=== PATIENT | female | born 1970 | race Caucasian/White ===

== ENCOUNTER 2017-10-04 08:55 | Emergency (ER) | payer BC ==
[2017-10-04 09:11] VITALS: RESP 18; TEMP 98
[2017-10-04] MEDS ORDERED: SODIUM CHLORIDE 0.9% 1,000 ML IV STA (09:28)
--- NOTE | 2017-10-04 09:46 | ED ---
General Adult HPI - General Chief complaint: Vaginal Bleeding Stated complaint: Bleeding 16 days Time Seen by Provider: 10/04/17 09:18 Source: patient, RN notes reviewed Mode of arrival: ambulatory Limitations: no limitations - History of Present Illness Initial comments: Patient 47-year-old female presenting to the emergency room today with a chief complaint of vaginal bleeding. Patient does admit that she checked her menstrual cycle 2 weeks ago and has continued to bleed. Patient denies any pain. She states last today she's noticed some large clots at times. Patient does admit that she's felt tired. She denies any other complaints. She states she has tried to get into her OB but has been unable to make an appointment. Patient denies any recent fever, chills, shortness of breath, chest pain, back pain, abdominal pain, nausea or vomiting, numbness or tingling, dysuria, constipation or diarrhea, headaches or visual changes, or any other complaints. - Related Data Allergies Allergy/AdvReac Type Severity Reaction Status Date / Time cephalexin [From Keflex] Allergy Unknown Verified 10/04/17 09:11 Review of Systems ROS Statement: Those systems with pertinent positive or pertinent negative responses have been documented in the HPI. ROS Other: All systems not noted in ROS Statement are negative. Past Medical History Past Medical History: No Reported History History of Any Multi-Drug Resistant Organisms: None Reported Past Surgical History: Joint Replacement, Orthopedic Surgery Additional Past Surgical History / Comment(s): right ankle surgery, plates and screws in left leg Past Psychological History: No Psychological Hx Reported Smoking Status: Never smoker Past Alcohol Use History: Occasional Past Drug Use History: None Reported General Exam - General Exam Comments Initial Comments: General: The patient is awake and alert, in no distress, and does not appear acutely ill. Eye: Pupils are equal, round and reactive to light, extra-ocular movements are intact. No nystagmus. There is normal conjunctiva bilaterally. No signs of icterus. Ears, nose, mouth and throat: There are moist mucous membranes and no oral lesions. Neck: The neck is supple, there is no tenderness or JVD. Cardiovascular: There is a regular rate and rhythm. No murmur, rub or gallop is appreciated. Respiratory: Lungs are clear to auscultation, respirations are non-labored, breath sounds are equal. No wheezes, stridor, rales, or rhonchi. Gastrointestinal: Soft, non-distended, non-tender abdomen without masses or organomegaly noted. There is no rebound or guarding present. No CVA tenderness. Musculoskeletal: Normal ROM, no tenderness. Strength 5/5. Sensation intact. Pulses equal bilaterally 2+. Neurological: A&O x 3. CN II-XII intact, There are no obvious motor or sensory deficits. Coordination appears grossly intact. Speech is normal. Skin: Skin is warm and dry and no rashes or lesions are noted. Psychiatric: Cooperative, appropriate mood & affect, normal judgment. Limitations: no limitations Course Vital Signs 10/04/17 09:06 Temperature 98 F Pulse Rate 62 Respiratory 18 Rate Blood Pressure 136/76 O2 Sat by Pulse 99 Oximetry Medical Decision Making - Medical Decision Making Patient's labs been reviewed does show stable hemoglobin. Patient's vital stable. Patient's resting comfortably. No abdominal pain or discomfort. Patient has had vaginal bleeding for the past 2 weeks. Ultrasound reviewed and does show a thickened heterogeneous endometrium. Results were discussed with the patient. Advised close follow-up with [facility] over the next 2 days. She states she's been trying to follow her as having a difficult time making appointment. Will also be given on-call OB. Concerns of possible cancer were discussed with the patient. Advised to return if any symptoms increase worsen. - Lab Data Result diagrams: 10/04/17 09:46 10/04/17 09:46 Lab Results 10/04/17 10/04/17 10/04/17 Range/Units 09:46 09:46 09:46 WBC 7.3 (3.8-10.6) k/uL RBC 3.96 (3.80-5.40) m/uL Hgb 10.9 L (11.4-16.0) gm/dL Hct 34.4 (34.0-46.0) % MCV 86.9 (80.0-100.0) fL MCH 27.5 (25.0-35.0) pg MCHC 31.6 (31.0-37.0) g/dL RDW 14.9 (11.5-15.5) % Plt Count 328 (150-450) k/uL Neutrophils % 58 % Lymphocytes % 26 % Monocytes % 7 % Eosinophils % 7 % Basophils % 1 % Neutrophils # 4.2 (1.3-7.7) k/uL Lymphocytes # 1.9 (1.0-4.8) k/uL Monocytes # 0.5 (0-1.0) k/uL Eosinophils # 0.5 (0-0.7) k/uL Basophils # 0.1 (0-0.2) k/uL PT (9.0-12.0) sec INR (<1.2) APTT (22.0-30.0) sec Sodium 138 (137-145) mmol/L Potassium 4.3 (3.5-5.1) mmol/L Chloride 109 H (98-107) mmol/L Carbon Dioxide 24 (22-30) mmol/L Anion Gap 5 mmol/L BUN 13 (7-17) mg/dL Creatinine 0.69 (0.52-1.04) mg/dL Est GFR (CKD-EPI)AfAm >90 (>60 ml/min/1.73 sqM) Est GFR (CKD-EPI)NonAf >90 (>60 ml/min/1.73 sqM) Glucose 82 (74-99) mg/dL Calcium 8.5 (8.4-10.2) mg/dL Total Bilirubin 0.3 (0.2-1.3) mg/dL AST 24 (14-36) U/L ALT 27 (9-52) U/L Alkaline Phosphatase 58 (38-126) U/L Total Protein 6.6 (6.3-8.2) g/dL Albumin 3.6 (3.5-5.0) g/dL Urine Color Urine Appearance (Clear) Urine pH (5.0-8.0) Ur Specific [place] (1.001-1.035) Urine Protein (Negative) Urine Glucose (UA) (Negative) Urine Ketones (Negative) Urine Blood (Negative) Urine Nitrite (Negative) Urine Bilirubin (Negative) Urine Urobilinogen (<2.0) mg/dL Ur Leukocyte Esterase (Negative) Urine RBC (0-5) /hpf Urine WBC (0-5) /hpf Urine Mucus (None) /hpf Urine HCG, Qual Not Detected (Not Detectd) 10/04/17 10/04/17 Range/Units 09:46 09:46 WBC (3.8-10.6) k/uL RBC (3.80-5.40) m/uL Hgb (11.4-16.0) gm/dL Hct (34.0-46.0) % MCV (80.0-100.0) fL MCH (25.0-35.0) pg MCHC (31.0-37.0) g/dL RDW (11.5-15.5) % Plt Count (150-450) k/uL Neutrophils % % Lymphocytes % % Monocytes % % Eosinophils % % Basophils % % Neutrophils # (1.3-7.7) k/uL Lymphocytes # (1.0-4.8) k/uL Monocytes # (0-1.0) k/uL Eosinophils # (0-0.7) k/uL Basophils # (0-0.2) k/uL PT 10.6 (9.0-12.0) sec INR 1.1 (<1.2) APTT 22.9 (22.0-30.0) sec Sodium (137-145) mmol/L Potassium (3.5-5.1) mmol/L Chloride (98-107) mmol/L Carbon Dioxide (22-30) mmol/L Anion Gap mmol/L BUN (7-17) mg/dL Creatinine (0.52-1.04) mg/dL Est GFR (CKD-EPI)AfAm (>60 ml/min/1.73 sqM) Est GFR (CKD-EPI)NonAf (>60 ml/min/1.73 sqM) Glucose (74-99) mg/dL Calcium (8.4-10.2) mg/dL Total Bilirubin (0.2-1.3) mg/dL AST (14-36) U/L ALT (9-52) U/L Alkaline Phosphatase (38-126) U/L Total Protein (6.3-8.2) g/dL Albumin (3.5-5.0) g/dL Urine Color Yellow Urine Appearance Clear (Clear) Urine pH 5.0 (5.0-8.0) Ur Specific [place] 1.016 (1.001-1.035) Urine Protein Negative (Negative) Urine Glucose (UA) Negative (Negative) Urine Ketones Negative (Negative) Urine Blood Large H (Negative) Urine Nitrite Negative (Negative) Urine Bilirubin Negative (Negative) Urine Urobilinogen <2.0 (<2.0) mg/dL Ur Leukocyte Esterase Negative (Negative) Urine RBC >182 H (0-5) /hpf Urine WBC 7 H (0-5) /hpf Urine Mucus Rare H (None) /hpf Urine HCG, Qual (Not Detectd) Disposition Clinical Impression: Dysfunctional uterine bleeding Disposition: HOME SELF-CARE Condition: Good Instructions: Dysfunctional Uterine Bleeding (ED) Additional Instructions: Please follow-up [facility] over the next 2 days. Please return to the emergency room symptoms increase or worsen or for any other concerns. Is patient prescribed a controlled substance at d/c from ED?: No Referrals: Yulia Roberto MD [Primary Care Provider] - 1-2 days Rosie Zuniga MD [STAFF PHYSICIAN] - 1-2 days Time of Disposition: 10:58
[2017-10-04 09:59] LABS: Basophils # (A) 0.1 k/uL (0-0.2); Basophils % (A) 1 %; Eosinophils # (A) 0.5 k/uL (0-0.7); Eosinophils % (A) 7 %; HCT 34.4 % (34.0-46.0); HGB 10.9 gm/dL (11.4-16.0); Lymphocytes # (A) 1.9 k/uL (1.0-4.8); Lymphocytes % (A) 26 %; MCH 27.5 pg (25.0-35.0); MCHC 31.6 g/dL (31.0-37.0); MCV 86.9 fL (80.0-100.0); Monocytes # (A) 0.5 k/uL (0-1.0); Monocytes % (A) 7 %; Neutrophils # (A) 4.2 k/uL (1.3-7.7); Neutrophils % (A) 58 %; Platelet Count 328 k/uL (150-450); RBC 3.96 m/uL (3.80-5.40); RDW 14.9 % (11.5-15.5); WBC 7.3 k/uL (3.8-10.6)
[2017-10-04 10:08] LABS: INR 1.1 (<1.2); Partial Thromboplastin Time 22.9 sec (22.0-30.0); Prothrombin Time 10.6 sec (9.0-12.0)
[2017-10-04 10:12] LABS: Appearance,Urine Clear (Clear); Bilirubin,Urine Negative (Negative); Blood,Urine Large (Negative); Color,Urine Yellow; Glucose,Urine (UA) Negative (Negative); Ketones,Urine Negative (Negative); Leukocyte Esterase,Urine Negative (Negative); Mucus,Urine Rare /hpf; Nitrite,Urine Negative (Negative); Protein,Urine Negative (Negative); RBC,Urine >182 /hpf (0-5); Specific Gravity,Urine 1.016 (1.001-1.035); Urobilinogen,Urine <2.0 mg/dL (<2.0); WBC,Urine 7 /hpf (0-5)
[2017-10-04 10:23] LABS: ALT 27 U/L (9-52); AST 24 U/L (14-36); Albumin 3.6 g/dL (3.5-5.0); Alkaline Phosphatase 58 U/L (38-126); Anion Gap 5 mmol/L; Blood Urea Nitrogen 13 mg/dL (7-17); Calcium 8.5 mg/dL (8.4-10.2); Carbon Dioxide 24 mmol/L (22-30); Chloride 109 mmol/L (98-107); Glucose 82 mg/dL (74-99); Potassium 4.3 mmol/L (3.5-5.1); Sodium 138 mmol/L (137-145); Total Bilirubin 0.3 mg/dL (0.2-1.3); Total Protein 6.6 g/dL (6.3-8.2)
--- NOTE | 2017-10-04 10:47 | US ---
EXAMINATION TYPE: US transvaginal DATE OF EXAM: 10/04/2017 COMPARISON: NONE CLINICAL HISTORY: bleeding. Bleeding x 16 days, heavy. Hx of tubal ligation TECHNIQUE: Transvaginal (TV). Date of LMP: 09/19/2017, EXAM MEASUREMENTS: Uterus: 9.2 x 5.3 x 4.0 cm Endometrial Stripe: 1.8 cm Right Ovary: 3.6 x 1.9 x 2.6 cm Left Ovary: 2.1 x 1.4 x 1.5 cm 1. Uterus: Anteverted wnl 2. Endometrium: Thickened and slightly heterogenous 3. Right Ovary: Cystic appearing lesion - 2.5 x 2.7 x 2.3 cm 4. Left Ovary: wnl Spectral, color and waveform doppler imaging shows good arterial and venous flow within the ovaries ; there is no evidence for ovarian torsion. 5. Bilateral Adnexa: wnl 6. Posterior cul-de-sac: no free fluid Cervix- nabothian cysts IMPRESSION: 1. THICKENED ENDOMETRIUM. ENDOMETRIAL CARCINOMA WOULD NEED TO BE EXCLUDED. 2. SIMPLE APPEARING CYSTIC LESION WITHIN THE RIGHT OVARY. 3. NABOTHIAN CYSTS.
[2017-10-04 11:19] VITALS: BP 136/63; PULSE 56
== END 2017-10-04 11:13 | disposition home or self-care (01) ==
LOC: EC 08:55
DX: N93.8 Other specified abnormal uterine and vaginal bleeding (principal); Z98.890 Other specified postprocedural states; Z88.1 Allergy status to other antibiotic agents
CPT/HCPCS: 36415; 76830; 80053; 81001; 81025; 85025; 85610; 85730; 93975; 96360; 99284

== ENCOUNTER 2017-10-05 10:10 | Emergency (ER) | payer BC ==
[2017-10-05 10:41] VITALS: RESP 18
--- NOTE | 2017-10-05 10:44 | ED ---
General Adult HPI - General Chief complaint: Vaginal Bleeding Stated complaint: vag bleeding Time Seen by Provider: 10/05/17 10:34 Source: patient, RN notes reviewed Mode of arrival: wheelchair Limitations: no limitations - History of Present Illness Initial comments: Patient 47-year-old female who presents emergency room today with a chief complaint of vaginal bleeding. Patient does admit that she was seen recently in the emergency room yesterday. She states that she try followed up with the [facility] today. She states she was advised by the office to come here to the emergency room. Patient does admit that she is bleeding through a pad approximately every hour. She does admit to feeling tired. Patient doesn't seen some clots. States that since lower cramping at times. Currently rates it a 04/01. Denies any complaints or symptoms. Patient denies any recent fever, chills, shortness of breath, chest pain, back pain, nausea or vomiting, numbness or tingling, dysuria or hematuria, constipation or diarrhea, headaches or visual changes, or any other complaints. - Related Data Home Medications Medication Instructions Recorded Confirmed No Known Home Medications 10/05/17 10/05/17 Allergies Allergy/AdvReac Type Severity Reaction Status Date / Time cephalexin [From Keflex] Allergy Rash/Hives Verified 10/05/17 10:49 Review of Systems ROS Statement: Those systems with pertinent positive or pertinent negative responses have been documented in the HPI. ROS Other: All systems not noted in ROS Statement are negative. Past Medical History Past Medical History: No Reported History History of Any Multi-Drug Resistant Organisms: None Reported Past Surgical History: Joint Replacement, Orthopedic Surgery Additional Past Surgical History / Comment(s): right ankle surgery, plates and screws in left leg Past Psychological History: No Psychological Hx Reported Smoking Status: Never smoker Past Alcohol Use History: Occasional Past Drug Use History: None Reported General Exam - General Exam Comments Initial Comments: General: The patient is awake and alert, in no distress, and does not appear acutely ill. Eye: Pupils are equal, round and reactive to light, extra-ocular movements are intact. No nystagmus. There is normal conjunctiva bilaterally. No signs of icterus. Ears, nose, mouth and throat: There are moist mucous membranes and no oral lesions. Neck: The neck is supple, there is no tenderness or JVD. Cardiovascular: There is a regular rate and rhythm. No murmur, rub or gallop is appreciated. Respiratory: Lungs are clear to auscultation, respirations are non-labored, breath sounds are equal. No wheezes, stridor, rales, or rhonchi. Gastrointestinal: Soft, non-distended, non-tender abdomen without masses or organomegaly noted. There is no rebound or guarding present. No CVA tenderness. Musculoskeletal: Normal ROM, no tenderness. Strength 5/5. Sensation intact. Pulses equal bilaterally 2+. Neurological: A&O x 3. CN II-XII intact, There are no obvious motor or sensory deficits. Coordination appears grossly intact. Speech is normal. Skin: Skin is warm and dry and no rashes or lesions are noted. Psychiatric: Cooperative, appropriate mood & affect, normal judgment. Limitations: no limitations Course Vital Signs 10/05/17 10:35 Temperature 98.1 F Pulse Rate 65 Respiratory 18 Rate Blood Pressure 134/71 O2 Sat by Pulse 99 Oximetry Medical Decision Making - Medical Decision Making Patient's vital stable. Resting comfortably. Case discussed in detail with attending physician Dr. Alva. Patient reexamined at this time shows no signs of distress. Patient's labs been reviewed. Hemoglobin is 10.7. Yesterday was 10.9. Patient's urinalysis does show large amount of blood. There are 59 white cells. Patient's asymptomatic. Culture will be added. Patient was sent in by [facility]. Advised to call office to set up appointment today. Advised to return to the emergency room symptoms increase or worsen. - Lab Data Result diagrams: 10/05/17 11:07 10/05/17 11:07 Lab Results 10/05/17 10/05/17 10/05/17 Range/Units 11:07 11:07 11:07 WBC 7.0 (3.8-10.6) k/uL RBC 3.80 (3.80-5.40) m/uL Hgb 10.7 L (11.4-16.0) gm/dL Hct 32.8 L (34.0-46.0) % MCV 86.2 (80.0-100.0) fL MCH 28.1 (25.0-35.0) pg MCHC 32.6 (31.0-37.0) g/dL RDW 15.0 (11.5-15.5) % Plt Count 276 (150-450) k/uL Neutrophils % 60 % Lymphocytes % 26 % Monocytes % 7 % Eosinophils % 5 % Basophils % 1 % Neutrophils # 4.2 (1.3-7.7) k/uL Lymphocytes # 1.8 (1.0-4.8) k/uL Monocytes # 0.5 (0-1.0) k/uL Eosinophils # 0.4 (0-0.7) k/uL Basophils # 0.1 (0-0.2) k/uL PT 10.4 (9.0-12.0) sec INR 1.1 (<1.2) APTT 22.5 (22.0-30.0) sec Sodium 139 (137-145) mmol/L Potassium 4.3 (3.5-5.1) mmol/L Chloride 109 H (98-107) mmol/L Carbon Dioxide 23 (22-30) mmol/L Anion Gap 7 mmol/L BUN 12 (7-17) mg/dL Creatinine 0.66 (0.52-1.04) mg/dL Est GFR (CKD-EPI)AfAm >90 (>60 ml/min/1.73 sqM) Est GFR (CKD-EPI)NonAf >90 (>60 ml/min/1.73 sqM) Glucose 83 (74-99) mg/dL Calcium 8.4 (8.4-10.2) mg/dL Total Bilirubin 0.4 (0.2-1.3) mg/dL AST 27 (14-36) U/L ALT 29 (9-52) U/L Alkaline Phosphatase 54 (38-126) U/L Total Protein 6.6 (6.3-8.2) g/dL Albumin 3.6 (3.5-5.0) g/dL Urine Color Urine Appearance (Clear) Urine pH (5.0-8.0) Ur Specific [place] (1.001-1.035) Urine Protein (Negative) Urine Glucose (UA) (Negative) Urine Ketones (Negative) Urine Blood (Negative) Urine Nitrite (Negative) Urine Bilirubin (Negative) Urine Urobilinogen (<2.0) mg/dL Ur Leukocyte Esterase (Negative) Urine RBC (0-5) /hpf Urine WBC (0-5) /hpf Ur Squamous Epith Cells (0-4) /hpf Urine Mucus (None) /hpf 10/05/17 Range/Units 11:41 WBC (3.8-10.6) k/uL RBC (3.80-5.40) m/uL Hgb (11.4-16.0) gm/dL Hct (34.0-46.0) % MCV (80.0-100.0) fL MCH (25.0-35.0) pg MCHC (31.0-37.0) g/dL RDW (11.5-15.5) % Plt Count (150-450) k/uL Neutrophils % % Lymphocytes % % Monocytes % % Eosinophils % % Basophils % % Neutrophils # (1.3-7.7) k/uL Lymphocytes # (1.0-4.8) k/uL Monocytes # (0-1.0) k/uL Eosinophils # (0-0.7) k/uL Basophils # (0-0.2) k/uL PT (9.0-12.0) sec INR (<1.2) APTT (22.0-30.0) sec Sodium (137-145) mmol/L Potassium (3.5-5.1) mmol/L Chloride (98-107) mmol/L Carbon Dioxide (22-30) mmol/L Anion Gap mmol/L BUN (7-17) mg/dL Creatinine (0.52-1.04) mg/dL Est GFR (CKD-EPI)AfAm (>60 ml/min/1.73 sqM) Est GFR (CKD-EPI)NonAf (>60 ml/min/1.73 sqM) Glucose (74-99) mg/dL Calcium (8.4-10.2) mg/dL Total Bilirubin (0.2-1.3) mg/dL AST (14-36) U/L ALT (9-52) U/L Alkaline Phosphatase (38-126) U/L Total Protein (6.3-8.2) g/dL Albumin (3.5-5.0) g/dL Urine Color Light Red Urine Appearance Clear (Clear) Urine pH 5.0 (5.0-8.0) Ur Specific [place] 1.019 (1.001-1.035) Urine Protein Trace H (Negative) Urine Glucose (UA) Negative (Negative) Urine Ketones Negative (Negative) Urine Blood Large H (Negative) Urine Nitrite Negative (Negative) Urine Bilirubin Negative (Negative) Urine Urobilinogen <2.0 (<2.0) mg/dL Ur Leukocyte Esterase Small H (Negative) Urine RBC >182 H (0-5) /hpf Urine WBC 52 H (0-5) /hpf Ur Squamous Epith Cells 1 (0-4) /hpf Urine Mucus Occasional H (None) /hpf Disposition Clinical Impression: DUB (dysfunctional uterine bleeding) Disposition: HOME SELF-CARE Condition: Good Instructions: Dysfunctional Uterine Bleeding (ED) Additional Instructions: Please use ibuprofen as discussed. Please follow-up with [facility] in the next 1- 2 days. Please return to emergency room if the symptoms increase or worsen or for any other concerns. Is patient prescribed a controlled substance at d/c from ED?: No Referrals: Yulia Roberto MD [Primary Care Provider] - 1-2 days Time of Disposition: 12:15
[2017-10-05 11:38] LABS: Basophils # (A) 0.1 k/uL (0-0.2); Basophils % (A) 1 %; Eosinophils # (A) 0.4 k/uL (0-0.7); Eosinophils % (A) 5 %; HCT 32.8 % (34.0-46.0); HGB 10.7 gm/dL (11.4-16.0); Lymphocytes # (A) 1.8 k/uL (1.0-4.8); Lymphocytes % (A) 26 %; MCH 28.1 pg (25.0-35.0); MCHC 32.6 g/dL (31.0-37.0); MCV 86.2 fL (80.0-100.0); Mean Platelet Volume 9.2; Monocytes # (A) 0.5 k/uL (0-1.0); Monocytes % (A) 7 %; Neutrophils # (A) 4.2 k/uL (1.3-7.7); Neutrophils % (A) 60 %; Platelet Count 276 k/uL (150-450)
[2017-10-05 11:47] LABS: INR 1.1 (<1.2); Partial Thromboplastin Time 22.5 sec (22.0-30.0); Prothrombin Time 10.4 sec (9.0-12.0)
[2017-10-05 11:52] LABS: ALT 29 U/L (9-52); AST 27 U/L (14-36); Albumin 3.6 g/dL (3.5-5.0); Alkaline Phosphatase 54 U/L (38-126); Anion Gap 7 mmol/L; Blood Urea Nitrogen 12 mg/dL (7-17); Calcium 8.4 mg/dL (8.4-10.2); Carbon Dioxide 23 mmol/L (22-30); Chloride 109 mmol/L (98-107); Glucose 83 mg/dL (74-99); Potassium 4.3 mmol/L (3.5-5.1); Sodium 139 mmol/L (137-145); Total Bilirubin 0.4 mg/dL (0.2-1.3); Total Protein 6.6 g/dL (6.3-8.2)
[2017-10-05 12:02] LABS: Appearance,Urine Clear (Clear); Bilirubin,Urine Negative (Negative); Blood,Urine Large (Negative); Color,Urine Light Red; Glucose,Urine (UA) Negative (Negative); Ketones,Urine Negative (Negative); Leukocyte Esterase,Urine Small (Negative); Mucus,Urine Occasional /hpf; Nitrite,Urine Negative (Negative); Protein,Urine Trace (Negative); RBC,Urine >182 /hpf (0-5); Specific Gravity,Urine 1.019 (1.001-1.035); Squamous Epithelial Cell,Urine 1 /hpf (0-4); Urobilinogen,Urine <2.0 mg/dL (<2.0); WBC,Urine 52 /hpf (0-5)
[2017-10-05 12:43] VITALS: BP 141/65; PULSE 58; TEMP 97.6
== END 2017-10-05 13:03 | disposition home or self-care (01) ==
LOC: EC 10:10
DX: N93.8 Other specified abnormal uterine and vaginal bleeding (principal); Z88.1 Allergy status to other antibiotic agents
CPT/HCPCS: 36415; 80053; 81001; 85025; 85610; 85730; 99284

== ENCOUNTER 2017-10-20 10:56 | Day surgery (SDC) | payer BC, MEDICARE ==
[2017-10-13 10:04] VITALS: BMI 61.1
--- NOTE | 2017-10-20 09:05 | P.HPOB ---
History of Present Illness H&P Date: 10/20/17 Chief Complaint: Dysfunctional uterine bleeding Ramandeep is a 47-year-old female with dysfunctional uterine bleeding. She relates that she has been bleeding bright red in the last month to month and a half with Her having to change her pad every 45 minutes. She had previously been normal for approximately 26 years and then in the last 6 months or so has started having irregularities. This would not be unusual in a 47-year-old necessarily however, on ultrasound the endometrium was grossly thickened and she is therefore scheduled for D&C with hysteroscopy and Pap smear as she has not had one in approximately 10 years. She denies other problems or symptoms. She is noted to be morbidly obese weighing 346 pounds. Past Medical History Past Medical History: No Reported History Additional Past Medical History / Comment(s): NEW ONSET HEAVY VAGINAL BLEEDING History of Any Multi-Drug Resistant Organisms: None Reported Past Surgical History: Orthopedic Surgery, Tubal Ligation Additional Past Surgical History / Comment(s): right ankle surgery, plates and screws in left leg Past Anesthesia/Blood Transfusion Reactions: No Reported Reaction Smoking Status: Never smoker - Past Family History Father Family Medical History: Coronary Artery Disease (CAD), Myocardial Infarction ([place] ) Mother Family Medical History: COPD, Hypertension Medications and Allergies Home Medications Medication Instructions Recorded Confirmed Type Ferrous Sulfate [Iron] 325 mg PO QAM 10/13/17 10/13/17 History Allergies Allergy/AdvReac Type Severity Reaction Status Date / Time cephalexin [From Keflex] Allergy Unknown Verified 10/13/17 09:46 Exam Osteopathic Statement: *. No significant issues noted on an osteopathic structural exam other than those noted in the History and Physical/Consult. - OBG Physical Exam Breast: both: normal (no masses) Abdomen: Obesity Abdomen: bowel sounds normal Vagina: normal moisture Uterus: normal size (Full pelvic exam will be done intraoperatively)
[~2017-10-20 10:56] MED LIST: DEXAMETHASONE SOD PHOSPHATE 10 MG/ML 1 ML VIAL IV ONE; LACTATED RINGERS 1,000 ML IV SCH; MIDAZOLAM 2 MG/2 ML VIAL IV PRN; ONDANSETRON 4 MG/2 ML VIAL IVP ONE; Pre Op ABX Message 1 EACH MISC MISCELLANE ONE; SCOPOLAMINE 1.5MG/72HR PATCH TRANSDERM ONE; fentaNYL (PF) 50 MCG/ML 2 ML AMP IV PRN
[2017-10-20 11:37] VITALS: RESP 16
[2017-10-20] MEDS ORDERED: LIDOCAINE 1% 20 ML VIAL (10MG/ML) FOR IV START INTRADERMA ONE (12:05)
[2017-10-20] MEDS ORDERED: LIDOCAINE 1% INJ 10MG/ML (20 ML MDV) ONE (12:24)
[2017-10-20] MEDS ORDERED: KETOROLAC 30 MG/ML 1 ML VIAL ONE (12:24)
[2017-10-20] MEDS ORDERED: MIDAZOLAM 2 MG/2 ML VIAL ONE (12:24)
[2017-10-20] MEDS ORDERED: fentaNYL (PF) 50 MCG/ML 2 ML AMP ONE (12:24)
[2017-10-20] MEDS ORDERED: PROPOFOL 10 MG/ML 20 ML VIAL IV ONE (12:24)
--- NOTE | 2017-10-20 12:53 | P.OP ---
Date of Procedure: 10/20/17 Preoperative Diagnosis: Dysfunctional uterine bleeding Postoperative Diagnosis: Same Procedure(s) Performed: Pap smear with D&C and attempted hysteroscopy Anesthesia: LAY Surgeon: Rell Noe Estimated Blood Loss (ml): 5 Pathology: other (Pap smear and uterine curettings) Condition: stable Disposition: same day Operative Findings: due to patient's morbid obesity and position of uterus was unable to pass the hysteroscope into the uterine cavity however endometrial curettings were obtained Description of Procedure: Patient was taken to the operating suite where general anesthetic was found be adequate. She was prepped and draped in the normal sterile fashion and placed in the dorsal lithotomy position. Initially a speculum was inserted into the vagina and the anterior lip of cervix was identified and grasped with an Allis clamp. Uterus is then sounded to 8 cm and cervix was dilated. Local attempts to pass the camera into the uterine cavity were done, however due to her size and position of uterus was unable to pass the uterus into the uterine cavity therefore that portion procedure was abandoned and sharp curettings of endometrium were obtained. All this tissue was collected placed on Telfa and sent to pathology for evaluation. Once this was completed instruments were removed sponge, lap, needle counts were all correct 2. Patient was then taken to the recovery room in stable Plan - Discharge Summary Discharge Rx Participant: No New Discharge Prescriptions: New Ibuprofen [Motrin] 600 mg PO Q6HR PRN #30 tab PRN Reason: Pain No Action Ferrous Sulfate [Iron] 325 mg PO QAM Antibiotic 1 tab PO BID Discharge Medication List Ferrous Sulfate [Iron] 325 mg PO QAM 10/13/17 [History] Antibiotic 1 tab PO BID 10/20/17 [History] Ibuprofen [Motrin] 600 mg PO Q6HR PRN #30 tab 10/20/17 [Rx] Follow up Appointment(s)/Referral(s): Rell Noe DO [Doctor of Osteopathic Medicine] - 10 Days Activity/Diet/Wound Care/Special Instructions: No heavy lifting, limit stairs and driving, and pelvic rest. If any high temperatures, heavy bleeding, or severe pain call my office Discharge Disposition: HOME SELF-CARE
[2017-10-20 13:04] VITALS: TEMP 96.8
[2017-10-20 14:09] VITALS: BP 127/82; PULSE 58
== END 2017-10-20 14:49 | disposition home or self-care (01) ==
LOC: OR 10:56
PROVIDERS: ATTEND Obstetrics & Gynecology
DX: N93.8 Other specified abnormal uterine and vaginal bleeding (principal); E66.01 Morbid (severe) obesity due to excess calories; Z68.44 Body mass index [BMI] 60.0-69.9, adult; Z88.1 Allergy status to other antibiotic agents; Z98.51 Tubal ligation status
CPT/HCPCS: 81025; 88305; 58120; J2250; J1100; J2405; J2001; J3010; J1885; J2704

== ENCOUNTER → 2017-12-16 | Outpatient (CLI) | payer BC ==
[2017-12-16 11:50] LABS: Basophils % (A) 1 %; Eosinophils # (A) 0.3 k/uL (0-0.7); Eosinophils % (A) 5 %; HCT 37.1 % (34.0-46.0); HGB 11.5 gm/dL (11.4-16.0); Hypochromasia Slight; Lymphocytes # (A) 1.6 k/uL (1.0-4.8); Lymphocytes % (A) 23 %; MCH 27.5 pg (25.0-35.0); MCHC 30.9 g/dL (31.0-37.0); Mean Platelet Volume 9.7; Monocytes # (A) 0.4 k/uL (0-1.0); Monocytes % (A) 6 %; Neutrophils # (A) 4.7 k/uL (1.3-7.7); Neutrophils % (A) 65 %; Platelet Count 289 k/uL (150-450); RBC 4.17 m/uL (3.80-5.40); RDW 14.2 % (11.5-15.5); WBC 7.2 k/uL (3.8-10.6)
== END | disposition home or self-care (01) ==
LOC: LABPAT 10:37
PROVIDERS: ATTEND Obstetrics & Gynecology
DX: Z01.812 Encounter for preprocedural laboratory examination (principal)
CPT/HCPCS: 36415; 85025

== ENCOUNTER 2017-12-21 06:12 | Day surgery (SDC) | payer BC, MEDICARE ==
[2017-12-16 09:12] VITALS: BMI 60.2
--- NOTE | 2017-12-18 16:34 | P.HPOB ---
History of Present Illness H&P Date: 12/18/17 Chief Complaint: Dysfunctional uterine bleeding Ramandeep is a 47-year-old female with a. She continues to have heavy bleeding even despite a prior D&C and due to ruling out of dysplasia or cancer we are moving forward with a NovaSure to resolve her symptoms. Risks/benefits/ alternatives were discussed with patient in detail and all questions were answered for her prior to proceeding to the operative room. Patient is scheduled for a hysteroscopy and NovaSure. With or without D&C. Past Medical History Past Medical History: No Reported History Additional Past Medical History / Comment(s): HEAVY MENSTRUAL BLEEDING., EDEMA RIGHT ANKLE (HX OF INJURY WITH SURGERY & HARDWARE IN PLACE.) HX OF INJURY LEFT LEG WITH HARDWARE IN PLACE. History of Any Multi-Drug Resistant Organisms: None Reported Past Surgical History: Orthopedic Surgery, Tubal Ligation Additional Past Surgical History / Comment(s): right ankle surgery with plate & bolts., plates and screws in left leg , D & C. Past Anesthesia/Blood Transfusion Reactions: No Reported Reaction Past Psychological History: No Psychological Hx Reported Smoking Status: Never smoker Past Alcohol Use History: Occasional Past Drug Use History: None Reported - Past Family History Father Family Medical History: Coronary Artery Disease (CAD), Myocardial Infarction ([place] ) Mother Family Medical History: COPD, Hypertension Medications and Allergies Home Medications Medication Instructions Recorded Confirmed Type Ferrous Sulfate [Iron] 325 mg PO DAILY 10/13/17 12/16/17 History Allergies Allergy/AdvReac Type Severity Reaction Status Date / Time cephalexin [From Keflex] Allergy FEVER Verified 12/16/17 08:47 Exam Osteopathic Statement: *. No significant issues noted on an osteopathic structural exam other than those noted in the History and Physical/Consult. - OBG Physical Exam Breast: both: normal (no masses) Abdomen: bowel sounds normal, no diffuse tenderness, no bruit present, no guarding noted, no hepatomegaly, no splenomegaly, no mass Vulva: both: normal Vagina: normal moisture, no discharge Cervix: no lesion, no discharge Uterus: normal size, normal contour Adnexa: both: normal Anus/Rectum: normal perianal skin, no rectal mass, no hemorrhoids, heme negative
[~2017-12-21 06:12] MED LIST changes: +HYDROmorphone 0.5 MG/0.5 ML SYRINGE IVP PRN; -fentaNYL (PF) 50 MCG/ML 2 ML AMP IV PRN
[2017-12-21] MEDS ORDERED: fentaNYL (PF) 50 MCG/ML 2 ML AMP ONE (07:43)
[2017-12-21] MEDS ORDERED: MIDAZOLAM 2 MG/2 ML VIAL ONE (07:43)
[2017-12-21] MEDS ORDERED: KETOROLAC 30 MG/ML 1 ML VIAL ONE (07:43)
[2017-12-21] MEDS ORDERED: PROPOFOL 10 MG/ML 20 ML VIAL IV ONE (07:43)
[2017-12-21] MEDS ORDERED: SUCCINYLCHOLINE CHLORIDE VIAL 200 MG/10 ML VIAL IV ONE (07:43)
--- NOTE | 2017-12-21 08:39 | P.OP ---
Date of Procedure: 12/21/17 Preoperative Diagnosis: Dysfunctional uterine bleeding Postoperative Diagnosis: Same with polyps noted Procedure(s) Performed: D&C with hysteroscopy and NovaSure ablation Anesthesia: LUCIA Surgeon: Rell Noe Estimated Blood Loss (ml): 5 Pathology: other (Uterine curettings) Condition: stable Disposition: same day Operative Findings: It appeared there were 2 uterine polyps noted on hysteroscopy, therefore another D&C was performed Description of Procedure: Patient was taken to the operating suite where a general anesthetic was found be adequate. She was prepped and draped in the normal sterile fashion and placed in the dorsal lithotomy position. Initially a speculum was inserted into the vagina and the anterior lip of the cervix was identified and grasped with an Allis clamp. Cervix was then dilated and uterus was sounded to 10 cm. Camera was then inserted. Once camera was removed sharp curettings of the endometrium were obtained and this tissue was placed on Telfa and sent to pathology for evaluation. NovaSure system was then brought in with length of 5 and a width 4.5 it was tested and then enabled. At the conclusion of the burn, NovaSure system was removed camera was reinserted with excellent burn noted. All instruments were then removed. Sponge, lap, needle counts were all correct 2. Patient was then taken to the recovery room in stable and satisfactory condition. Plan - Discharge Summary New Discharge Prescriptions: New Ibuprofen [Motrin] 600 mg PO Q6HR PRN #30 tab PRN Reason: Pain No Action Ferrous Sulfate [Iron] 325 mg PO DAILY Discharge Medication List Ferrous Sulfate [Iron] 325 mg PO DAILY 10/13/17 [History] Ibuprofen [Motrin] 600 mg PO Q6HR PRN #30 tab 12/21/17 [Rx] Follow up Appointment(s)/Referral(s): Rell Noe DO [Doctor of Osteopathic Medicine] - 3 Weeks Activity/Diet/Wound Care/Special Instructions: No heavy lifting, limit stairs and driving today, pelvic rest. If any high temperatures, heavy bleeding, or severe pain call my office. Expect some dark discharge the next 2-3 weeks Discharge Disposition: HOME SELF-CARE
[2017-12-21 08:42] VITALS: TEMP 97.4
[2017-12-21 08:44] VITALS: RESP 16
[2017-12-21 09:31] VITALS: BP 121/76; PULSE 53
== END 2017-12-21 09:52 | disposition home or self-care (01) ==
LOC: OR 06:12
PROVIDERS: ATTEND Obstetrics & Gynecology
DX: N84.0 Polyp of corpus uteri (principal); N93.8 Other specified abnormal uterine and vaginal bleeding; R60.0 Localized edema; K21.9 Gastro-esophageal reflux disease without esophagitis; E66.01 Morbid (severe) obesity due to excess calories; Z68.44 Body mass index [BMI] 60.0-69.9, adult; Z88.1 Allergy status to other antibiotic agents; Z98.51 Tubal ligation status
CPT/HCPCS: 81025; 88305; 58563; J2250; J0330; J1100; J2405; J3010; J1885; J2704

== ENCOUNTER 2018-02-06 14:15 | Emergency (ER) | payer BC, MEDICARE ==
[2018-02-06 14:23] VITALS: RESP 18; TEMP 98.2
[2018-02-06 15:02] VITALS: BP 131/73; PULSE 68
--- NOTE | 2018-02-06 15:07 | ED ---
General Adult HPI - General Chief complaint: Animal Bite Stated complaint: Dog bite rt ankle Source: patient, RN notes reviewed, old records reviewed Mode of arrival: ambulatory Limitations: no limitations - History of Present Illness Initial comments: 47-year-old female patient presents to ED after sustaining a dog bite to posterior right calcaneus. Patient states that she was walking out door when she was bitten by a Pakistani rubio mix in the back her right foot. Patient was able to pull away and close door. Patient denies fall, or any other trauma that occurred during the bite. Patient is ambulatory. Patient presented to ED directly after bite. Patient sustained a linear, approximately 2 cm laceration on her posterior R heel. Pt denies any other injury. Patient denies any other complaints including, chest pain, shortness breath, abdominal pain, headache, changes in vision. Patient states that she had her last tetanus immunization update approximately 3 years ago, denies obtaining a today. Patient has a history of surgery on her right ankle. Systemic: Pt denies fatigue, myalgia, fever/chills, rash. Pt denies weakness, night sweats, weight loss. Neuro: Pt denies headache, visual disturbances, syncope or pre-syncope. HEENT: Pt denies ocular discharge or irritation, otalgia, rhinorrhea, pharyngitis or notable lymphadenopathy. Cardiopulmonary: Pt denies chest pain, SOB, heart palpitations, dyspnea on exertion. Abdominal/GI: Pt denies abdominal pain, n/v/d. : Pt denies dysuria, burning w/ urination, frequency/urgency. Denies new onset urinary or bowel incontinence. MSK: Pt denies myalgia, loss of strength or function in extremities. - Related Data Home Medications Medication Instructions Recorded Confirmed Ferrous Sulfate [Iron] 325 mg PO DAILY 10/13/17 12/21/17 Previous Rx's Medication Instructions Recorded Ibuprofen [Motrin] 600 mg PO Q6HR PRN #30 tab 12/21/17 Amoxicillin/Potassium Clav 1 tab PO Q12HR 7 Days #14 tab 02/06/18 [Augmentin 875-125 Tablet] Allergies Allergy/AdvReac Type Severity Reaction Status Date / Time cephalexin [From Keflex] Allergy FEVER Verified 02/06/18 14:24 Review of Systems ROS Statement: Those systems with pertinent positive or pertinent negative responses have been documented in the HPI. ROS Other: All systems not noted in ROS Statement are negative. Past Medical History Past Medical History: No Reported History Additional Past Medical History / Comment(s): HEAVY MENSTRUAL BLEEDING., EDEMA RIGHT ANKLE (HX OF INJURY WITH SURGERY & HARDWARE IN PLACE.) HX OF INJURY LEFT LEG WITH HARDWARE IN PLACE. History of Any Multi-Drug Resistant Organisms: None Reported Past Surgical History: Orthopedic Surgery, Tubal Ligation Additional Past Surgical History / Comment(s): right ankle surgery with plate & bolts., plates and screws in left leg , D & C., Uterine ablation 12/21/17 Past Anesthesia/Blood Transfusion Reactions: No Reported Reaction Past Psychological History: No Psychological Hx Reported Smoking Status: Never smoker Past Alcohol Use History: Occasional Past Drug Use History: None Reported - Past Family History Father Family Medical History: Coronary Artery Disease (CAD), Myocardial Infarction ([place] ) Mother Family Medical History: COPD, Hypertension General Exam - General Exam Comments Initial Comments: Constitutional: NAD, AOX3, Pt has pleasant affect. HEENT: NC/AT, trachea midline, neck supple, no lymphadenopathy. Posterior pharynx non erythematous, without exudates. External ears appear normal, without discharge. Mucous membranes moist. Eyes PERRLA, EOM intact. There is no scleral icterus. No pallor noted. Cardiopulmonary: RRR, no murmurs, rubs or gallops, no JVD noted. Lungs CTAB in anterior and posterior kaur. No peripheral edema. Abdominal exam: Abdomen soft and non-distended. Abdomen non-tender to palpation in all 4 quadrants. Bowel sounds active in LLQ. No hepatosplenomegaly. Neuro: CN II-XII grossly intact. MSK: Approximately 2 cm laceration in the right posterior calcaneus. Approximately 2 small, non-ecchymotic, non-puncture abrasions proximal to the site of laceration. Patient neurovascularly intact. Dorsalis pedis pulse +2. Tibialis posterior pulse +2. Cap refill less than 2 seconds. Sensation intact. Patient is ambulatory. Limitations: no limitations Course Vital Signs 02/06/18 02/06/18 14:20 15:01 Temperature 98.2 F Pulse Rate 51 L 68 Respiratory 18 18 Rate Blood Pressure 141/76 131/73 O2 Sat by Pulse 98 99 Oximetry Medical Decision Making - Medical Decision Making 47-year-old female patient who presented to ED after sustaining bite on posterior right foot. Proper dog bite paperwork was filled out by Nurse Keli. Patient sustained no other injury. Patient is ambulatory. Physical exam revealed a 2 cm linear laceration, non-open and posterior calcaneus. 2 other small abrasions proximal to the laceration, non-puncture wounds, non- open. Patient reports that she had tetanus updated approximately 3 years ago, declined to update today. Wound was irrigated vigorously with 1 L normal saline. Laceration was loosely approximated with one Steri-Strip. Patient to be written a prescription for Augmentin. Discussed at length with patient parameters for return to ED including, signs of infection around bite including redness, discharge, streaking. Other parameters for return including nausea vomiting diarrhea, fever chills, chest pain, abdominal pain or any other new symptoms. Patient to follow-up with PCP in 12 days. Case discussed with Dr. Christensen. Disposition Clinical Impression: Dog bite Disposition: HOME SELF-CARE Condition: Good Instructions: Animal Bite (ED) Additional Instructions: Patient to adhere to previously discussed treatment plan and will take medication(s) as directed. Patient to follow up with PCP in 1-2 days. Patient to return to ED if symptoms do not improve. Prescriptions: Amoxicillin/Potassium Clav [Augmentin 875-125 Tablet] 1 tab PO Q12HR 7 Days #14 tab Is patient prescribed a controlled substance at d/c from ED?: No Referrals: Yulia Roberto MD [Primary Care Provider] - 1-2 days Time of Disposition: 15:32
--- NOTE | 2018-02-06 15:17 | XR ---
EXAMINATION TYPE: XR foot complete RT DATE OF EXAM: 02/06/2018 CLINICAL HISTORY: Dogbite with right foot pain TECHNIQUE: Frontal, lateral, and oblique images of the right foot are obtained. COMPARISON: None FINDINGS: There is no acute fracture/dislocation evident in the right foot. There is focal soft tiss ue swelling over the calcaneus and ventral ankle joint on the lateral view. Mild arthropathy seen at the first tarsometatarsal joint and distal interphalangeal joints. Postsurgical changes at the ankle are seen as a lateral fibular fixation plate and medial malleoli are transcortical screws. No osseous erosion. Small plantar heel spur. IMPRESSION: Focal soft tissue swelling over the calcaneus and dorsal ankle could be reactive or relat e to cellulitis. No osseous erosion or sequela of osteomyelitis. No radiopaque foreign body. No acute fracture or dislocation of the right foot. Postoperative change.
== END 2018-02-06 15:38 | disposition home or self-care (01) ==
LOC: EC 14:15
DX: S91.311A Laceration without foreign body, right foot, initial encounter (principal); Z79.899 Other long term (current) drug therapy; Z88.1 Allergy status to other antibiotic agents; Z53.29 Procedure and treatment not carried out because of patient's decision for other reasons; W54.0XXA Bitten by dog, initial encounter; Y93.01 Activity, walking, marching and hiking; Y92.89 Other specified places as the place of occurrence of the external cause
CPT/HCPCS: 99284

== ENCOUNTER → 2019-01-31 | Outpatient (CLI) | payer BC, MEDICARE ==
--- NOTE | 2019-01-31 13:38 | MM ---
Reason for exam: screening (asymptomatic). Baseline mammogram. History: Took hormonal contraceptives for 2 years. Physical Findings: Nurse did not find any significant physical abnormalities on exam. MG Screening Mammo w CAD Bilateral CC and MLO view(s) were taken. There are scattered fibroglandular densities. Benign appearing bilateral calcifications. No suspicious abnormality. These results were verbally communicated with the patient and result sheet given to the patient on 01/31/19. ASSESSMENT: Benign, BI-RAD 2 RECOMMENDATION: Routine screening mammogram of both breasts in 1 year.
== END | disposition home or self-care (01) ==
LOC: RADMAMWWP 12:57
PROVIDERS: ATTEND Internal Medicine
DX: Z12.31 Encounter for screening mammogram for malignant neoplasm of breast (principal)
CPT/HCPCS: 77067

== ENCOUNTER 2019-11-21 17:05 | Inpatient (IN) | payer BC, MEDICARE ==
--- NOTE | 2019-11-21 17:30 | ED ---
General Adult HPI - General Chief complaint: Abdominal Pain Stated complaint: right side pain/chills Time Seen by Provider: 11/21/19 17:10 Source: patient, RN notes reviewed, old records reviewed Mode of arrival: wheelchair Limitations: no limitations - History of Present Illness Initial comments: This is a 49-year-old female presents emergency Department complaining of sudden onset of right flank pain. Patient states radiates around the back. Patient states she's never had a kidney stone the past per patient denies any dysuria hematuria urinary frequency. Patient does present however with a temperature 100.5. Patient denies any recent known fever prior to coming to the burn. Patient denies any recent cough or difficulty breathing shortness of breath. Patient denies any nausea vomiting or diarrhea. Patient denies any areas of skin that are reddened or possibly infected. Patient has no other complaints at this time. Patient states the pain does wax and wane - Related Data Home Medications Medication Instructions Recorded Confirmed Ferrous Sulfate [Iron] 325 mg PO DAILY 10/13/17 12/21/17 Previous Rx's Medication Instructions Recorded Ibuprofen [Motrin] 600 mg PO Q6HR PRN #30 tab 12/21/17 Amoxicillin/Potassium Clav 1 tab PO Q12HR 7 Days #14 tab 02/06/18 [Augmentin 875-125 Tablet] Allergies Allergy/AdvReac Type Severity Reaction Status Date / Time cephalexin [From Keflex] Allergy FEVER Verified 11/21/19 17:06 Review of Systems ROS Statement: Those systems with pertinent positive or pertinent negative responses have been documented in the HPI. ROS Other: All systems not noted in ROS Statement are negative. Past Medical History Past Medical History: No Reported History Additional Past Medical History / Comment(s): HEAVY MENSTRUAL BLEEDING., EDEMA RIGHT ANKLE (HX OF INJURY WITH SURGERY & HARDWARE IN PLACE.) HX OF INJURY LEFT LEG WITH HARDWARE IN PLACE. History of Any Multi-Drug Resistant Organisms: None Reported Past Surgical History: Orthopedic Surgery, Tubal Ligation Additional Past Surgical History / Comment(s): right ankle surgery with plate & bolts., plates and screws in left leg , D & C., Uterine ablation 12/21/17 Past Anesthesia/Blood Transfusion Reactions: No Reported Reaction Past Psychological History: No Psychological Hx Reported Smoking Status: Never smoker Past Alcohol Use History: Occasional Past Drug Use History: None Reported - Past Family History Father Family Medical History: Coronary Artery Disease (CAD), Myocardial Infarction ([place]) Mother Family Medical History: COPD, Hypertension General Exam - General Exam Comments Initial Comments: GENERAL: Patient is well-developed and well-nourished. Patient is nontoxic and well- hydrated and is in moderate distress. ENT: Neck is soft and supple. No significant lymphadenopathy is noted. Oropharynx is clear. Moist mucous membranes. Neck has full range of motion without eliciting any pain. EYES: The sclera were anicteric and conjunctiva were pink and moist. Extraocular movements were intact and pupils were equal round and reactive to light. Eyelids were unremarkable. PULMONARY: Unlabored respirations. Good breath sounds bilaterally. No audible rales rhonchi or wheezing was noted. CARDIOVASCULAR: There is a regular rate and rhythm without any murmurs gallops or rubs. ABDOMEN: Soft and nontender with normal bowel sounds. SKIN: Skin is clear with no lesions or rashes and otherwise unremarkable. NEUROLOGIC: Patient is alert and oriented x3. Cranial nerves II through XII are grossly intact. Motor and sensory are also intact. Normal speech, volume and content. Symmetrical smile. MUSCULOSKELETAL: Normal extremities with adequate strength and full range of motion. LYMPHATICS: No significant lymphadenopathy is noted PSYCHIATRIC: Normal psychiatric evaluation. Limitations: no limitations Course Vital Signs 11/21/19 11/21/19 17:06 18:39 Temperature 100.4 F H 100.5 F H Pulse Rate 103 H 88 Respiratory 20 16 Rate Blood Pressure 147/60 131/69 O2 Sat by Pulse 96 98 Oximetry Medical Decision Making - Lab Data Result diagrams: 11/21/19 17:39 11/21/19 17:39 Lab Results 11/21/19 11/21/19 11/21/19 Range/Units 17:39 17:39 17:39 WBC 25.0 H (3.8-10.6) k/uL RBC 4.47 (3.80-5.40) m/uL Hgb 12.9 (11.4-16.0) gm/dL Hct 40.9 (34.0-46.0) % MCV 91.6 (80.0-100.0) fL MCH 28.8 (25.0-35.0) pg MCHC 31.5 (31.0-37.0) g/dL RDW 13.7 (11.5-15.5) % Plt Count 297 (150-450) k/uL Neutrophils % 92 % Lymphocytes % 4 % Monocytes % 2 % Eosinophils % 2 % Basophils % 0 % Neutrophils # 22.9 H (1.3-7.7) k/uL Lymphocytes # 1.0 (1.0-4.8) k/uL Monocytes # 0.6 (0-1.0) k/uL Eosinophils # 0.4 (0-0.7) k/uL Basophils # 0.1 (0-0.2) k/uL Sodium 134 L (137-145) mmol/L Potassium 3.9 (3.5-5.1) mmol/L Chloride 102 (98-107) mmol/L Carbon Dioxide 24 (22-30) mmol/L Anion Gap 8 mmol/L BUN 9 (7-17) mg/dL Creatinine 0.67 (0.52-1.04) mg/dL Est GFR (CKD-EPI)AfAm >90 (>60 ml/min/1.73 sqM) Est GFR (CKD-EPI)NonAf >90 (>60 ml/min/1.73 sqM) Glucose 106 H (74-99) mg/dL Calcium 8.7 (8.4-10.2) mg/dL Total Bilirubin 0.8 (0.2-1.3) mg/dL AST 24 (14-36) U/L ALT 12 (4-34) U/L Alkaline Phosphatase 79 (38-126) U/L Total Protein 7.6 (6.3-8.2) g/dL Albumin 4.2 (3.5-5.0) g/dL Amylase 37 (30-110) U/L Lipase 29 (23-300) U/L Urine Color Yellow Urine Appearance Cloudy H (Clear) Urine pH 5.0 (5.0-8.0) Ur Specific [place] 1.018 (1.001-1.035) Urine Protein Negative (Negative) Urine Glucose (UA) Negative (Negative) Urine Ketones Negative (Negative) Urine Blood Negative (Negative) Urine Nitrite Negative (Negative) Urine Bilirubin Negative (Negative) Urine Urobilinogen <2.0 (<2.0) mg/dL Ur Leukocyte Esterase Negative (Negative) Urine RBC 1 (0-5) /hpf Urine WBC 2 (0-5) /hpf Ur Squamous Epith Cells 5 H (0-4) /hpf Disposition Clinical Impression: Abdominal pain, Fever Disposition: ADMITTED IP TO THIS HOSP Referrals: Yulia Roberto MD [Primary Care Provider] - 1-2 days Time of Disposition: 19:17
[2019-11-21] MEDS ORDERED: KETOROLAC 15 MG/ML 1 ML VIAL IVP STA (17:31)
[2019-11-21] MEDS ORDERED: ACETAMINOPHEN TAB 500 MG TAB PO STA (17:32)
[2019-11-21 17:52] LABS: Basophils # (A) 0.1 k/uL (0-0.2); Basophils % (A) 0 %; Eosinophils # (A) 0.4 k/uL (0-0.7); Eosinophils % (A) 2 %; HCT 40.9 % (34.0-46.0); HGB 12.9 gm/dL (11.4-16.0); Lymphocytes % (A) 4 %; MCH 28.8 pg (25.0-35.0); MCHC 31.5 g/dL (31.0-37.0); MCV 91.6 fL (80.0-100.0); Mean Platelet Volume 9.9; Monocytes # (A) 0.6 k/uL (0-1.0); Monocytes % (A) 2 %; Neutrophils # (A) 22.9 k/uL (1.3-7.7); Neutrophils % (A) 92 %; Platelet Count 297 k/uL (150-450); RBC 4.47 m/uL (3.80-5.40); RDW 13.7 % (11.5-15.5)
[2019-11-21 17:59] LABS: Appearance,Urine Cloudy (Clear); Bilirubin,Urine Negative (Negative); Blood,Urine Negative (Negative); Color,Urine Yellow; Glucose,Urine (UA) Negative (Negative); Ketones,Urine Negative (Negative); Leukocyte Esterase,Urine Negative (Negative); Nitrite,Urine Negative (Negative); Protein,Urine Negative (Negative); RBC,Urine 1 /hpf (0-5); Specific Gravity,Urine 1.018 (1.001-1.035); Squamous Epithelial Cell,Urine 5 /hpf (0-4); Urobilinogen,Urine <2.0 mg/dL (<2.0); WBC,Urine 2 /hpf (0-5)
[2019-11-21 18:10] LABS: ALT 12 U/L (4-34); AST 24 U/L (14-36); African American GFR (CKD) >90 (>60 ml/min/1.73 sqM); Albumin 4.2 g/dL (3.5-5.0); Alkaline Phosphatase 79 U/L (38-126); Amylase 37 U/L (30-110); Anion Gap 8 mmol/L; Blood Urea Nitrogen 9 mg/dL (7-17); Calcium 8.7 mg/dL (8.4-10.2); Carbon Dioxide 24 mmol/L (22-30); Chloride 102 mmol/L (98-107); Glucose 106 mg/dL (74-99); Non-African American GFR(CKD) >90 (>60 ml/min/1.73 sqM); Potassium 3.9 mmol/L (3.5-5.1); Sodium 134 mmol/L (137-145); Total Bilirubin 0.8 mg/dL (0.2-1.3); Total Protein 7.6 g/dL (6.3-8.2)
--- NOTE | 2019-11-21 18:20 | CT ---
EXAMINATION TYPE: CT abdomen pelvis wo con DATE OF EXAM: 11/21/2019 COMPARISON: None HISTORY: Right side abdominal pain CT DLP: 2407.9 mGycm Automated exposure control for dose reduction was used. Lung bases are clear. There is no pleural effusion. Liver and spleen appear intact. Bile ducts are no t dilated. Stomach is intact. There is small hiatal hernia. There is no pancreatic mass. Gallbladder is intact. The bile ducts are not dilated. There is no adrenal mass. Kidneys have normal size. Exam limited by motion artifact. There is no hydr onephrosis. Ureters are not dilated. There is no retroperitoneal adenopathy. Appendix is posterior an d appears normal. Bladder distends smoothly. There are small left-sided inguinal hernia that contains fat. Uterus is anteverted. Lumbar vertebra have normal alignment. Disc spaces are fairly normal. There is no compression fractur e. The bony pelvis is intact. There is no mesenteric edema. There is no ascites or free air. There is no bowel obstruction. IMPRESSION: No evidence of renal stone or obstruction. No evidence of appendicitis.
--- NOTE | 2019-11-21 18:21 | XR ---
EXAMINATION TYPE: XR KUB DATE OF EXAM: 11/21/2019 COMPARISON: 04/27/2009 HISTORY: Abdominal pain TECHNIQUE: 2 views upright FINDINGS: There is no evidence of intestinal obstruction or pneumoperitoneum. Exam limited by patient 's size. There is no evidence of a mass. Lung bases are clear. IMPRESSION: Nonacute abdomen.
[2019-11-21] MEDS ORDERED: cefTRIAXone IN SWFI 1,000 MG/10 ML SYRINGE IVP STA (18:25)
[2019-11-21] MEDS ORDERED: PIPERACILLIN-TAZOBACTAM 3.375 GM in SODIUM CHLORIDE 0.9% 100 ML IVPB STA (18:26)
[2019-11-21] MEDS ORDERED: SODIUM CHLORIDE 0.9% 1,000 ML IV ONE (19:14)
[2019-11-22] MEDS ORDERED: ACETAMINOPHEN TAB 325 MG TAB PO STA (00:41)
[2019-11-22] MEDS: PIPERACILLIN-TAZOBACTAM 3.375 GM in SODIUM CHLORIDE 0.9% 100 ML IVPB SCH ×3 (02:48→18:47)
[2019-11-22] MEDS: ACETAMINOPHEN TAB 325 MG TAB PO PRN (12:33)
[2019-11-22 12:54] LABS: African American GFR (CKD) >90 (>60 ml/min/1.73 sqM); Anion Gap 9 mmol/L; Blood Urea Nitrogen 10 mg/dL (7-17); Carbon Dioxide 21 mmol/L (22-30); Chloride 105 mmol/L (98-107); Glucose 92 mg/dL (74-99); Non-African American GFR(CKD) >90 (>60 ml/min/1.73 sqM); Sodium 135 mmol/L (137-145)
[2019-11-22 12:55] LABS: Potassium 4.4 mmol/L (3.5-5.1)
--- NOTE | 2019-11-22 13:01 | P.CONS ---
History of Present Illness - Reason for Consult Consult date: 11/22/19 - History of Present Illness CHIEF COMPLAINT: right flank pain History of present illness: this is a 49-year-old female who presented to the emergency room with complaints of sudden onset of right flank pain that started around 3:00 yesterday afternoon. Patient reports severe pain on the right side. She felt the urge and pressure to urinate initially she could not void her urine. And then she had incontinence. She had significant chills and fevers at home. And came into the ER for further evaluation and treatment. Her temperature was a heart 0.5 her T-max is 101.3. She has been having nausea. No vomiting. She had a computed tomography scan of the head and pelvis that was negative for kidney stones. And no evidence of appendicitis. Patient does report earlier today she had pressure when she urinated and in the toilet she found a small black stone. She also has noticed some redness and warmth to the left leg. Patient denies any vomiting, bowel movement changes. Denies any burning with urination. PAST MEDICAL HISTORY: See list. PAST SURGICAL HISTORY: See list. MEDICATIONS: See list. ALLERGIES: See list. SOCIAL HISTORY: No illicit drug use. REVIEW OF SYSTEMS: CONSTITUTIONAL: Denies fever or chills. HEENT: Denies blurred vision, vision changes, or eye pain. Denies hemoptysis CARDIOVASCULAR: Denies chest pain or pressure. RESPIRATORY: No shortness of breath. GASTROINTESTINAL: See HPI for pertinent findings HEMATOLOGIC: Denies bleeding disorders. GENITOURINARY: Denies any blood in urine or increased urinary frequency. SKIN: Denies pruitis. Denies rash. PHYSICAL EXAM: VITAL SIGNS: Reviewed GENERAL: Well-developed in no acute distress. HEENT: No sclera icterus. Extraocular movements grossly intact. Moist buccal mucosa. Head is atraumatic, normocephalic. No nasal drainage. ABDOMEN: Soft. Obese. Nondistended. nontender with palpation NEUROLOGIC: Alert and oriented. Cranial nerves II through XII grossly intact. LABORATORY DATA: WBC 25 IMAGING: ASSESSMENT: PLAN: Physician Telescope Operator note has been reviewed by physician. Signing provider agrees with the documented findings, assessment, and plan of care. Past Medical History Past Medical History: No Reported History Additional Past Medical History / Comment(s): HEAVY MENSTRUAL BLEEDING., EDEMA RIGHT ANKLE (HX OF INJURY WITH SURGERY & HARDWARE IN PLACE.) HX OF INJURY LEFT LEG WITH HARDWARE IN PLACE. History of Any Multi-Drug Resistant Organisms: None Reported Past Surgical History: Orthopedic Surgery, Tonsillectomy, Tubal Ligation Additional Past Surgical History / Comment(s): right ankle surgery with plate & bolts., plates and screws in left leg , D & C., Uterine ablation 12/21/17 Past Anesthesia/Blood Transfusion Reactions: No Reported Reaction Past Psychological History: No Psychological Hx Reported Smoking Status: Never smoker Past Alcohol Use History: Occasional Past Drug Use History: None Reported - Past Family History Father Family Medical History: Coronary Artery Disease (CAD), Myocardial Infarction ([place]) Mother Family Medical History: COPD, Hypertension Medications and Allergies Home Medications Medication Instructions Recorded Confirmed Type No Known Home Medications 11/21/19 11/21/19 History Allergies Allergy/AdvReac Type Severity Reaction Status Date / Time cephalexin [From Keflex] Allergy FEVER Verified 11/21/19 20:50 Physical Exam Vitals: Vital Signs Temp Pulse Pulse Pulse Resp BP BP 11/22/19 08:59 100.4 F H 89 16 82/55 11/22/19 05:27 98.6 F 11/22/19 02:53 99.6 F 95 18 11/22/19 00:40 101.3 F H 11/21/19 21:00 98.6 F 89 18 11/21/19 19:29 99.2 F 11/21/19 18:39 100.5 F H 88 16 131/69 11/21/19 17:06 100.4 F H 103 H 20 147/60 BP Pulse Ox 11/22/19 08:59 110/71 95 11/22/19 05:27 11/22/19 02:53 126/71 100 11/22/19 00:40 11/21/19 21:00 147/84 100 11/21/19 19:29 11/21/19 18:39 98 11/21/19 17:06 96 Intake and Output 11/21/19 11/22/19 11/22/19 22:59 06:59 14:59 Other: Voiding Method Toilet Toilet Toilet # Voids 1 1 3 Weight 157.397 kg Results CBC & Chem 7: 11/21/19 17:39 09/01/20 12:27 Labs: Abnormal Lab Results - Last 24 Hours (Table) 11/21/19 11/21/19 11/21/19 Range/Units 17:39 17:39 17:39 WBC 25.0 H (3.8-10.6) k/uL Neutrophils # 22.9 H (1.3-7.7) k/uL Sodium 134 L (137-145) mmol/L Carbon Dioxide (22-30) mmol/L Glucose 106 H (74-99) mg/dL Plasma Lactic Acid [place] (0.7-2.0) mmol/L Calcium (8.4-10.2) mg/dL Urine Appearance Cloudy H (Clear) Ur Squamous Epith Cells 5 H (0-4) /hpf 11/21/19 11/21/19 11/22/19 Range/Units 18:34 22:10 12:27 WBC (3.8-10.6) k/uL Neutrophils # (1.3-7.7) k/uL Sodium 135 L (137-145) mmol/L Carbon Dioxide 21 L (22-30) mmol/L Glucose (74-99) mg/dL Plasma Lactic Acid [place] 2.4 H* 2.1 H* (0.7-2.0) mmol/L Calcium 8.0 L (8.4-10.2) mg/dL Urine Appearance (Clear) Ur Squamous Epith Cells (0-4) /hpf
--- NOTE | 2019-11-22 13:05 | NM ---
EXAMINATION TYPE: NM hepatobiliary w CCK DATE OF EXAM: 11/22/2019 COMPARISON: CT abdomen and pelvis from yesterday. HISTORY: Abdominal pain not further specified per order. Additional symptoms of diminished appetite a nd nausea per patient. TECHNIQUE: After the intravenous administration of 5.36 mCi Tc 99m Mebrofenin hepatobiliary scintigra phy is performed. Immediate images post injection. FINDINGS: There is satisfactory initial accumulation of tracer by the liver. The gallbladder is visualized wit hin 40 minutes. The small bowel activity is noted within 15 minutes. At one hour CCK was administer ed, patient was injected with 3.15 mcg of Kinevac, and gallbladder ejection fraction is calculated at 76 %, not deviated from the normal range. Therefore there is no scintigraphic evidence of cystic or common bile duct obstruction to suggest acute cholecystitis or gallbladder dyskinesia. IMPRESSION: Ejection fraction is 76%, some consider this abnormal or a hyperkinetic response.
[2019-11-22 14:05] LABS: Basophils # (A) 0.1 k/uL (0-0.2); Basophils % (A) 1 %; Eosinophils # (A) 0.1 k/uL (0-0.7); Eosinophils % (A) 0 %; HCT 41.4 % (34.0-46.0); HGB 12.6 gm/dL (11.4-16.0); Hypochromasia Marked; Lymphocytes % (A) 5 %; MCHC 30.4 g/dL (31.0-37.0); MCV 95.2 fL (80.0-100.0); Mean Platelet Volume 10.5; Monocytes # (A) 0.6 k/uL (0-1.0); Monocytes % (A) 3 %; Neutrophils # (A) 20.2 k/uL (1.3-7.7); Neutrophils % (A) 91 %; Platelet Count 200 k/uL (150-450); RBC 4.35 m/uL (3.80-5.40); RDW 13.9 % (11.5-15.5); WBC 22.1 k/uL (3.8-10.6)
--- NOTE | 2019-11-22 14:21 | P.GSCN ---
History of Present Illness Consult date: 11/22/19 History of present illness: CHIEF COMPLAINT: right flank pain HISTORY OF PRESENT ILLNESS: this is a 49-year-old female who presented to the emergency room with complaints of sudden onset of right flank pain that started around 3:00 yesterday afternoon. Patient reports severe pain on the right side. She felt the urge and pressure to urinate initially she could not void her urine. And then she had incontinence. She had significant chills and fevers at home. And came into the ER for further evaluation and treatment. Her temperature was a heart 0.5 her T-max is 101.3. She has been having nausea. No vomiting. She had a computed tomography scan of the head and pelvis that was negative for kidney stones. And no evidence of appendicitis. Patient does repo rt earlier today she had pressure when she urinated and in the toilet she found a small black stone. She also has noticed some redness and warmth to the left leg. Patient denies any vomiting, bowel movement changes. Denies any burning with urination. PAST MEDICAL HISTORY: See list. PAST SURGICAL HISTORY: See list. MEDICATIONS: See list. ALLERGIES: See list. SOCIAL HISTORY: No illicit drug use. REVIEW OF SYSTEMS: CONSTITUTIONAL: Denies fever or chills. HEENT: Denies blurred vision, vision changes, or eye pain. Denies hemoptysis CARDIOVASCULAR: Denies chest pain or pressure. RESPIRATORY: No shortness of breath. GASTROINTESTINAL: See HPI for pertinent findings HEMATOLOGIC: Denies bleeding disorders. GENITOURINARY: Denies any blood in urine or increased urinary frequency. SKIN: Denies pruitis. Denies rash. PHYSICAL EXAM: VITAL SIGNS: Reviewed GENERAL: Well-developed in no acute distress. HEENT: No sclera icterus. Extraocular movements grossly intact. Moist buccal mucosa. Head is atraumatic, normocephalic. No nasal drainage. ABDOMEN: Soft. Obese. Nondistended. Nontender NEUROLOGIC: Alert and oriented. Cranial nerves II through XII grossly intact. LABORATORY DATA: WBC 22.1 lactic acid 2.1 down to 1.7 LFTs normal lipase normal urinalysis negative. IMAGING: Computed tomography scan of the abdomen and pelvis no evidence of renal stone or obstruction. No evidence of appendicitis. HIDA scan ejection fraction 76%, some consider this abnormal or a hyperkinetic response ASSESSMENT: 1. Right flank pain likely secondary to kidney stone 2. Hyperkinetic gallbladder 3. Right leg cellulitis PLAN: -No surgical intervention planned -Patient follow up with Dr. Penaloza in the office in one week -Okay to start regular diet -Antibiotics per primary -DVT prophylaxis subcu heparin Thank you for this consultation. Physician Retail Office Manager note has been reviewed by physician. Signing provider agrees with the documented findings, assessment, and plan of care. Past Medical History Past Medical History: No Reported History Additional Past Medical History / Comment(s): HEAVY MENSTRUAL BLEEDING., EDEMA RIGHT ANKLE (HX OF INJURY WITH SURGERY & HARDWARE IN PLACE.) HX OF INJURY LEFT LEG WITH HARDWARE IN PLACE. History of Any Multi-Drug Resistant Organisms: None Reported Past Surgical History: Orthopedic Surgery, Tonsillectomy, Tubal Ligation Additional Past Surgical History / Comment(s): right ankle surgery with plate & bolts., plates and screws in left leg , D & C., Uterine ablation 12/21/17 Past Anesthesia/Blood Transfusion Reactions: No Reported Reaction Past Psychological History: No Psychological Hx Reported Smoking Status: Never smoker Past Alcohol Use History: Occasional Past Drug Use History: None Reported - Past Family History Father Family Medical History: Coronary Artery Disease (CAD), Myocardial Infarction ([place]) Mother Family Medical History: COPD, Hypertension Medications and Allergies Home Medications Medication Instructions Recorded Confirmed Type No Known Home Medications 11/21/19 11/21/19 History Allergies Allergy/AdvReac Type Severity Reaction Status Date / Time cephalexin [From Keflex] Allergy FEVER Verified 11/21/19 20:50 Surgical - Exam Vital Signs Temp Pulse Resp BP Pulse Ox 100.4 F H 103 H 20 147/60 96 11/21/19 17:06 11/21/19 17:06 11/21/19 17:06 11/21/19 17:06 11/21/19 17:06 Results - Labs 11/22/19 12:27 11/22/19 12:27 Abnormal Lab Results - Last 24 Hours (Table) 11/21/19 11/21/19 11/21/19 Range/Units 17:39 17:39 17:39 WBC 25.0 H (3.8-10.6) k/uL MCHC (31.0-37.0) g/dL Neutrophils # 22.9 H (1.3-7.7) k/uL Sodium 134 L (137-145) mmol/L Carbon Dioxide (22-30) mmol/L Glucose 106 H (74-99) mg/dL Plasma Lactic Acid Gallo (0.7-2.0) mmol/L Calcium (8.4-10.2) mg/dL Urine Appearance Cloudy H (Clear) Ur Squamous Epith Cells 5 H (0-4) /hpf 11/21/19 11/21/19 11/22/19 Range/Units 18:34 22:10 12:27 WBC 22.1 H (3.8-10.6) k/uL MCHC 30.4 L (31.0-37.0) g/dL Neutrophils # 20.2 H (1.3-7.7) k/uL Sodium (137-145) mmol/L Carbon Dioxide (22-30) mmol/L Glucose (74-99) mg/dL Plasma Lactic Acid Gallo 2.4 H* 2.1 H* (0.7-2.0) mmol/L Calcium (8.4-10.2) mg/dL Urine Appearance (Clear) Ur Squamous Epith Cells (0-4) /hpf 11/22/19 Range/Units 12:27 WBC (3.8-10.6) k/uL MCHC (31.0-37.0) g/dL Neutrophils # (1.3-7.7) k/uL Sodium 135 L (137-145) mmol/L Carbon Dioxide 21 L (22-30) mmol/L Glucose (74-99) mg/dL Plasma Lactic Acid Gallo (0.7-2.0) mmol/L Calcium 8.0 L (8.4-10.2) mg/dL Urine Appearance (Clear) Ur Squamous Epith Cells (0-4) /hpf Diabetes panel 11/21/19 11/22/19 Range/Units 17:39 12:27 Sodium 134 L 135 L (137-145) mmol/L Potassium 3.9 4.4 (3.5-5.1) mmol/L Chloride 102 105 (98-107) mmol/L Carbon Dioxide 24 21 L (22-30) mmol/L BUN 9 10 (7-17) mg/dL Creatinine 0.67 0.75 (0.52-1.04) mg/dL Glucose 106 H 92 (74-99) mg/dL Calcium 8.7 8.0 L (8.4-10.2) mg/dL AST 24 (14-36) U/L ALT 12 (4-34) U/L Alkaline Phosphatase 79 (38-126) U/L Total Protein 7.6 (6.3-8.2) g/dL Albumin 4.2 (3.5-5.0) g/dL Calcium panel 11/21/19 11/22/19 Range/Units 17:39 12:27 Calcium 8.7 8.0 L (8.4-10.2) mg/dL Albumin 4.2 (3.5-5.0) g/dL Pituitary panel 11/21/19 11/22/19 Range/Units 17:39 12:27 Sodium 134 L 135 L (137-145) mmol/L Potassium 3.9 4.4 (3.5-5.1) mmol/L Chloride 102 105 (98-107) mmol/L Carbon Dioxide 24 21 L (22-30) mmol/L BUN 9 10 (7-17) mg/dL Creatinine 0.67 0.75 (0.52-1.04) mg/dL Glucose 106 H 92 (74-99) mg/dL Calcium 8.7 8.0 L (8.4-10.2) mg/dL Adrenal panel 11/21/19 11/22/19 Range/Units 17:39 12:27 Sodium 134 L 135 L (137-145) mmol/L Potassium 3.9 4.4 (3.5-5.1) mmol/L Chloride 102 105 (98-107) mmol/L Carbon Dioxide 24 21 L (22-30) mmol/L BUN 9 10 (7-17) mg/dL Creatinine 0.67 0.75 (0.52-1.04) mg/dL Glucose 106 H 92 (74-99) mg/dL Calcium 8.7 8.0 L (8.4-10.2) mg/dL Total Bilirubin 0.8 (0.2-1.3) mg/dL AST 24 (14-36) U/L ALT 12 (4-34) U/L Alkaline Phosphatase 79 (38-126) U/L Total Protein 7.6 (6.3-8.2) g/dL Albumin 4.2 (3.5-5.0) g/dL
[2019-11-22] MEDS: HEPARIN SODIUM,PORCINE 5,000 UNIT/ML 1 ML VIAL SQ SCH (15:37)
--- NOTE | 2019-11-22 23:45 | P.HPIM ---
History of Present Illness H&P Date: 11/22/19 Chief Complaint: Abdominal pain Patient is a 49-year-old female with a known history of heavy menstrual bleeding, chronic edema of the right ankle with history of injury and hardware in place and history of left leg with hardware in place and occasional alcohol use presents to ER with the complaints of abdominal pain started around 3 PM yesterday. Patient states that she was at her aunt's house. When she came home she developed abdominal pain mainly in the right flank is worse with strong urgency to pee. Patient felt very shaky and cold when she got home. Patient s tates that her pain radiated to the back. No history of previous renal stones. Denies any dysuria or hematuria. No nausea vomiting or diarrhea. No complaints of chest pain or shortness of breath. No cough or sputum production. No recent illnesses. Patient states that she has been having chronic itching of the bilateral lower extremities and has prior cellulitis. Patient was febrile with T-max 100.5 on admission and was tachycardic. Laboratory data showed WBC 25.0, hemoglobin 12.9, platelets 297 Sodium 134, potassium 3.9, chloride 102, BUN 9 and creatinine 0.67 lactic acid 2.4 Urinalysis showed cloudy with negative leukocyte esterase and 1 RBC and [address] of abdominal pelvis showed no evidence of renal stone or obstruction. No evidence of appendicitis. KUB x-ray showed nonacute abdomen. Review of Systems Constitutional: Patient denies any fever or chills . No generalized weakness or weight loss. Abdomen: Patient denied nausea vomiting and diarrhea. pt. does have RLQ abdominal pain and flank pain. Cardiovascular: Patient denies any chest pain or short of breath no palpitations. Respiratory: patient denied any cough is from production. No shortness of breath Neurologic: Patient denied any numbness or tingling headache. Musculoskeletal: Patient denies any complaints of joint swelling or deformity. Skin: Negative Psychiatric: Negative Endocrine: No heat or cold intolerance. No recent weight gain. Genitourinary: No dysuria or hematuria. All other 14 point ROS negative except the above Past Medical History Past Medical History: No Reported History Additional Past Medical History / Comment(s): HEAVY MENSTRUAL BLEEDING., EDEMA RIGHT ANKLE (HX OF INJURY WITH SURGERY & HARDWARE IN PLACE.) HX OF INJURY LEFT LEG WITH HARDWARE IN PLACE. History of Any Multi-Drug Resistant Organisms: None Reported Past Surgical History: Orthopedic Surgery, Tonsillectomy, Tubal Ligation Additional Past Surgical History / Comment(s): right ankle surgery with plate & bolts., plates and screws in left leg , D & C., Uterine ablation 12/21/17 Past Anesthesia/Blood Transfusion Reactions: No Reported Reaction Past Psychological History: No Psychological Hx Reported Smoking Status: Never smoker Past Alcohol Use History: Occasional Past Drug Use History: None Reported - Past Family History Father Family Medical History: Coronary Artery Disease (CAD), Myocardial Infarction ([place]) Mother Family Medical History: COPD, Hypertension Medications and Allergies Home Medications Medication Instructions Recorded Confirmed Type No Known Home Medications 11/21/19 11/21/19 History Allergies Allergy/AdvReac Type Severity Reaction Status Date / Time cephalexin [From Keflex] Allergy FEVER Verified 11/21/19 20:50 Physical Exam Vitals: Vital Signs Temp Pulse Pulse Pulse Resp BP BP 11/22/19 08:59 100.4 F H 89 16 82/55 11/22/19 05:27 98.6 F 11/22/19 02:53 99.6 F 95 18 11/22/19 00:40 101.3 F H 11/21/19 21:00 98.6 F 89 18 11/21/19 19:29 99.2 F 11/21/19 18:39 100.5 F H 88 16 131/69 11/21/19 17:06 100.4 F H 103 H 20 147/60 BP Pulse Ox 11/22/19 08:59 110/71 95 11/22/19 05:27 11/22/19 02:53 126/71 100 11/22/19 00:40 11/21/19 21:00 147/84 100 11/21/19 19:29 11/21/19 18:39 98 11/21/19 17:06 96 Intake and Output 11/21/19 11/22/19 11/22/19 22:59 06:59 14:59 Other: Voiding Method Toilet Toilet Toilet # Voids 1 1 3 Weight 157.397 kg PHYSICAL EXAMINATION: Patient is lying in the bed comfortably, no acute distress, awake alert and oriented.. HEENT: Normocephalic. Neck is supple. Pupils reactive. Nostrils clear. Oral cavity is moist. Ears reveal no drainage. Neck reveals no JVD, carotid bruits, or thyromegaly. CHEST EXAMINATION: Trachea is central. Symmetrical expansion. Bibasilar diminished air entry. Lung kaur clear to auscultation and percussion. CARDIAC: Normal S1, S2 with no gallops. No murmurs ABDOMEN: Soft.Mild right lower abdominal pain. Bowel sounds normal. No organomegaly. No abdominal bruits. Extremities: reveal no edema. No clubbing or cyanosis Neurologically awake, alert, oriented x3 with well-coordinated movements. No focal deficits noted Skin: No rash or skin lesions. Psychiatric: Coperative. Nonsuicidal Musculoskeletal: No joint swelling or deformity. Normal range of motion. Results CBC & Chem 7: 11/22/19 12:27 11/22/19 12:27 Labs: Abnormal Lab Results - Last 24 Hours (Table) 11/21/19 11/21/19 11/21/19 Range/Units 17:39 17:39 17:39 WBC 25.0 H (3.8-10.6) k/uL Neutrophils # 22.9 H (1.3-7.7) k/uL Sodium 134 L (137-145) mmol/L Glucose 106 H (74-99) mg/dL Plasma Lactic Acid Gallo (0.7-2.0) mmol/L Urine Appearance Cloudy H (Clear) Ur Squamous Epith Cells 5 H (0-4) /hpf 11/21/19 11/21/19 Range/Units 18:34 22:10 WBC (3.8-10.6) k/uL Neutrophils # (1.3-7.7) k/uL Sodium (137-145) mmol/L Glucose (74-99) mg/dL Plasma Lactic Acid Gallo 2.4 H* 2.1 H* (0.7-2.0) mmol/L Urine Appearance (Clear) Ur Squamous Epith Cells (0-4) /hpf Thrombosis Risk Factor Assmnt - DVT/VTE Prophylaxis DVT/VTE Prophylaxis: Pharmacologic Prophylaxis ordered - Choose All That Apply Any of the Below Risk Factors Present?: Yes Each Factor Represents 1 point: Age 41-60 years, Obesity (BMI >25) Other Risk Factors: No Other congenital or acquired thrombophilia - If yes, enter type in comment: No Thrombosis Risk Factor Assessment Total Risk Factor Score: 2 Thrombosis Risk Factor Assessment Level: Low Risk Assessment and Plan Assessment: Right sided abdominal pain/flank pain likely related to renal colic-Likely due to passage of stone Hyperkinetic gallbladder as per hepatobiliary scan without evidence of acute cholecystitis. Left lower extremity/ankle cellulitis Significant leukocytosis History of bilateral lower extremity surgery with hardware in place Morbid obesity BMI 61.5 DVT prophylaxis Heparin subcu Plan: Patient will be continued on IV hydration and pain management. Continue with antibiotics in the form of Zosyn.Right flank pain most likely secondary to acute colicky pain due to passage of stone. No evidence of infection was noted in my urinalysis. Patient also noticed passing small stone today afternoon. HIDA scan showed no evidence of acute cholecystitis. No surgical intervention as per general surgery. Monitor CBC and BMP tomorrow. Further recommendations based on the clinical course. Time with Patient: Greater than 30
[2019-11-23] MEDS: HEPARIN SODIUM,PORCINE 5,000 UNIT/ML 1 ML VIAL SQ SCH ×4 (00:24→23:22)
[2019-11-23] MEDS: ACETAMINOPHEN TAB 325 MG TAB PO PRN (00:24)
[2019-11-23] MEDS: SODIUM CHLORIDE 0.9% 1,000 ML IV SCH ×2 (00:25→14:43)
[2019-11-23] MEDS: PIPERACILLIN-TAZOBACTAM 3.375 GM in SODIUM CHLORIDE 0.9% 100 ML IVPB SCH ×3 (03:40→14:04)
[2019-11-23 06:10] LABS: Basophils # (A) 0.1 k/uL (0-0.2); Basophils % (A) 0 %; Eosinophils # (A) 0.2 k/uL (0-0.7); Eosinophils % (A) 1 %; HCT 36.5 % (34.0-46.0); HGB 11.4 gm/dL (11.4-16.0); Hypochromasia Slight; Lymphocytes # (A) 1.4 k/uL (1.0-4.8); Lymphocytes % (A) 9 %; MCH 28.9 pg (25.0-35.0); MCHC 31.1 g/dL (31.0-37.0); MCV 92.8 fL (80.0-100.0); Monocytes # (A) 0.8 k/uL (0-1.0); Monocytes % (A) 5 %; Neutrophils # (A) 13.9 k/uL (1.3-7.7); Neutrophils % (A) 85 %; Platelet Count 221 k/uL (150-450); RBC 3.94 m/uL (3.80-5.40); RDW 13.8 % (11.5-15.5); WBC 16.4 k/uL (3.8-10.6)
[2019-11-23 06:28] LABS: African American GFR (CKD) >90 (>60 ml/min/1.73 sqM); Anion Gap 6 mmol/L; Blood Urea Nitrogen 8 mg/dL (7-17); Calcium 7.7 mg/dL (8.4-10.2); Carbon Dioxide 25 mmol/L (22-30); Chloride 106 mmol/L (98-107); Glucose 94 mg/dL (74-99); Non-African American GFR(CKD) >90 (>60 ml/min/1.73 sqM); Potassium 3.7 mmol/L (3.5-5.1); Sodium 137 mmol/L (137-145)
--- NOTE | 2019-11-23 11:07 | P.PN ---
Subjective Progress Note Date: 11/23/19 CHIEF COMPLAINT: right flank pain HISTORY OF PRESENT ILLNESS: Patient presented with right flank pain likely due to passing a kidney stone. She did pass a kidney stone in the observation unit. She also was found to have a hyperkinetic gallbladder on HIDA scan. She reports improvement in her abdominal pain. She did have a temp of 100.4 yesterday morning. Since then afebrile. WBC 16.4 she is tolerating diet. She is also being treated for left leg cellulitis. PHYSICAL EXAM: VITAL SIGNS: Reviewed. GENERAL: Well-developed in no acute distress. HEENT: No sclera icterus. Extraocular movements grossly intact. Moist buccal mucosa. Head is atraumatic, normocephalic. ABDOMEN: Soft. Nondistended. Nontender. NEUROLOGIC: Alert and oriented. Cranial nerves II through XII grossly intact. ASSESSMENT: 1. Right flank pain likely secondary to kidney stone 2. Hyperkinetic gallbladder 3. Right leg cellulitis PLAN: -No surgical intervention planned -Patient follow up with Dr. Penaloza in the office in one week -Antibiotics per primary -DVT prophylaxis subcu heparin Physician Billet Header note has been reviewed by physician. Signing provider agrees with the documented findings, assessment, and plan of care. Objective - Vital Signs Vital signs: Vital Signs Temp 99 F 11/23/19 07:51 Pulse 79 11/23/19 07:51 Resp 16 11/23/19 07:51 BP 114/62 11/23/19 07:51 Pulse Ox 97 11/23/19 07:51 Intake & Output 11/22/19 11/23/19 11/23/19 18:59 06:59 18:59 Other: Voiding Method Toilet Toilet # Voids 3 2 - Labs CBC & Chem 7: 11/23/19 05:41 11/23/19 05:41 Labs: Abnormal Lab Results - Last 24 Hours (Table) 11/22/19 11/22/19 11/23/19 Range/Units 12:27 12:27 05:41 WBC 22.1 H 16.4 H (3.8-10.6) k/uL MCHC 30.4 L (31.0-37.0) g/dL Neutrophils # 20.2 H 13.9 H (1.3-7.7) k/uL Sodium 135 L (137-145) mmol/L Carbon Dioxide 21 L (22-30) mmol/L Calcium 8.0 L (8.4-10.2) mg/dL 11/23/19 Range/Units 05:41 WBC (3.8-10.6) k/uL MCHC (31.0-37.0) g/dL Neutrophils # (1.3-7.7) k/uL Sodium (137-145) mmol/L Carbon Dioxide (22-30) mmol/L Calcium 7.7 L (8.4-10.2) mg/dL Microbiology - Last 24 Hours (Table) 11/21/19 19:15 Blood Culture - Preliminary Blood No Growth after 24 hours
[2019-11-23] MEDS ORDERED: HYDROcodone/APAP 5-325MG 1 EACH TAB PO PRN (12:30)
[2019-11-23] MEDS ORDERED: VANCOMYCIN IV PER PHARMACY 1 EACH MISC MISCELLANE PRN (12:32)
[2019-11-23] MEDS: VANCOMYCIN 2,500 MG in SODIUM CHLORIDE 0.9% 500 ML 500 ML IVPB SCH ×2 (14:42→23:22)
[2019-11-24] MEDS: SODIUM CHLORIDE 0.9% 1,000 ML IV SCH (03:15)
[2019-11-24] MEDS: HEPARIN SODIUM,PORCINE 5,000 UNIT/ML 1 ML VIAL SQ SCH ×2 (07:44→15:41)
--- NOTE | 2019-11-24 10:46 | P.PN ---
Subjective Progress Note Date: 11/23/19 Principal diagnosis: Left lower extremity cellulitis Abdominal pain resolved now Patient is a 49-year-old female with a known history of heavy menstrual bleeding, chronic edema of the right ankle with history of injury and hardware in place and history of left leg with hardware in place and occasional alcohol use presents to ER with the complaints of abdominal pain started around 3 PM yesterday. Patient states that she was at her aunt's house. When she came home she developed abdominal pain mainly in the right flank is worse with strong urgency to pee. Patient felt very shaky and cold when she got home. Patient states that her pain radiated to the back. No history of previous renal stones. Denies any dysuria or hematuria. No nausea vomiting or diarrhea. No complaints of chest pain or shortness of breath. No cough or sputum production. No recent illnesses. Patient states that she has been having chronic itching of the bilateral lower extremities and has prior cellulitis. Patient was febrile with T-max 100.5 on admission and was tachycardic. Laboratory data showed WBC 25.0, hemoglobin 12.9, platelets 297 Sodium 134, potassium 3.9, chloride 102, BUN 9 and creatinine 0.67 lactic acid 2.4 Urinalysis showed cloudy with negative leukocyte esterase and 1 RBC and [address] of abdominal pelvis showed no evidence of renal stone or obstruction. No evidence of appendicitis. KUB x-ray showed nonacute abdomen. 11/23/2019 Patient is currently lying in the bed comfortably. No complaints of abdominal pain. No nausea vomiting or diarrhea. Otherwise patient did have left lower exudate distal leg is not extending up to the left knee no drainage noted. Zuly ent has been afebrile.. Antibiotics will be changed to vancomycin and follow-upin the next 24 hours, Current medications reviewed. Objective - Vital Signs Vital signs: Vital Signs Temp 98.6 F 11/23/19 19:55 Pulse 76 11/23/19 19:55 Resp 18 11/23/19 19:55 BP 136/97 11/23/19 19:55 Pulse Ox 100 11/23/19 19:55 Intake & Output 11/23/19 11/23/19 11/24/19 06:59 18:59 06:59 Intake Total 200 200 Balance 200 200 Intake: Other 200 200 Other: Voiding Method Toilet Toilet # Voids 2 - Exam PHYSICAL EXAMINATION: Patient is lying in the bed comfortably, no acute distress, awake alert and oriented.. HEENT: Normocephalic. Neck is supple. Pupils reactive. Nostrils clear. Oral cavity is moist. Ears reveal no drainage. Neck reveals no JVD, carotid bruits, or thyromegaly. CHEST EXAMINATION: Trachea is central. Symmetrical expansion. Bibasilar diminished air entry. Lung kaur clear to auscultation and percussion. CARDIAC: Normal S1, S2 with no gallops. No murmurs ABDOMEN: Soft.Mild right lower abdominal pain. Bowel sounds normal. No organomegaly. No abdominal bruits. Extremities: Patient does have chronic bilateral lower extremity lymphedema. No clubbing or cyanosis Left lower extremity redness and warmth and mild tenderness. Redness extending up to the knee. Neurologically awake, alert, oriented x3 with well-coordinated movements. No focal deficits noted Skin: No rash or skin lesions. Psychiatric: Coperative. Nonsuicidal Musculoskeletal: No joint swelling or deformity. Normal range of motion. - Labs CBC & Chem 7: 11/23/19 05:41 11/23/19 05:41 Labs: Abnormal Lab Results - Last 24 Hours (Table) 11/23/19 11/23/19 Range/Units 05:41 05:41 WBC 16.4 H (3.8-10.6) k/uL Neutrophils # 13.9 H (1.3-7.7) k/uL Calcium 7.7 L (8.4-10.2) mg/dL Microbiology - Last 24 Hours (Table) 11/21/19 19:15 Blood Culture - Preliminary Blood No Growth after 48 hours Assessment and Plan Assessment: Right sided abdominal pain/flank pain likely related to renal colic-Likely due to passage of stone Hyperkinetic gallbladder as per hepatobiliary scan without evidence of acute cholecystitis. Left lower extremity cellulitis Sepsis secondary to cellulitis History of bilateral lower extremity surgery with hardware in place Morbid obesity BMI 61.5 DVT prophylaxis Heparin subcu Plan: Patient will be continued on IV hydration and pain management. Continue with antibiotics in the form of Zosyn. Antibiotics changed to vancomycin. Right flank pain most likely secondary to acute colicky pain due to passage of stone. Pain is resolved now. No evidence of infection was noted in my urinalysis. Patient also noticed passing small stone today afternoon. HIDA scan showed no evidence of acute cholecystitis. No surgical intervention as per general surgery. Monitor CBC and BMP tomorrow. Further recommendations based on the clinical course. Time with Patient: Greater than 30
[2019-11-24 11:30] LABS: Basophils % (A) 1 %; Eosinophils # (A) 0.4 k/uL (0-0.7); Eosinophils % (A) 5 %; HCT 35.9 % (34.0-46.0); HGB 11.2 gm/dL (11.4-16.0); Hypochromasia Slight; Lymphocytes # (A) 1.5 k/uL (1.0-4.8); Lymphocytes % (A) 17 %; MCH 29.2 pg (25.0-35.0); MCHC 31.3 g/dL (31.0-37.0); MCV 93.2 fL (80.0-100.0); Mean Platelet Volume 9.7; Monocytes # (A) 0.5 k/uL (0-1.0); Monocytes % (A) 6 %; Neutrophils # (A) 6.2 k/uL (1.3-7.7); Neutrophils % (A) 70 %; Platelet Count 269 k/uL (150-450); RBC 3.85 m/uL (3.80-5.40); RDW 13.8 % (11.5-15.5); WBC 8.9 k/uL (3.8-10.6)
--- NOTE | 2019-11-24 11:34 | P.PN ---
Subjective Progress Note Date: 11/24/19 CHIEF COMPLAINT: right flank pain HISTORY OF PRESENT ILLNESS: Patient presented with right flank pain likely due to passing a kidney stone. She did pass a kidney stone in the observation unit. She also was found to have a hyperkinetic gallbladder on HIDA scan. She denies any abdominal pain. She's tolerating diet. Denies any nausea vomiting. Afebrile. PHYSICAL EXAM: VITAL SIGNS: Reviewed. GENERAL: Well-developed in no acute distress. HEENT: No sclera icterus. Extraocular movements grossly intact. Moist buccal mucosa. Head is atraumatic, normocephalic. ABDOMEN: Soft. Nondistended. Nontender. NEUROLOGIC: Alert and oriented. Cranial nerves II through XII grossly intact. ASSESSMENT: 1. Right flank pain likely secondary to kidney stone 2. Hyperkinetic gallbladder 3. Right leg cellulitis PLAN: -No surgical intervention planned -Patient follow up with Dr. Penaloza in the office in one week -Antibiotics per primary -DVT prophylaxis subcu heparin Physician Physics Teacher note has been reviewed by physician. Signing provider agrees with the documented findings, assessment, and plan of care. Objective - Vital Signs Vital signs: Vital Signs Temp 98 F 11/24/19 07:35 Pulse 80 11/24/19 07:35 Resp 16 11/24/19 07:35 BP 122/76 11/24/19 07:35 Pulse Ox 97 11/24/19 07:35 Intake & Output 11/23/19 11/24/19 11/24/19 18:59 06:59 18:59 Intake Total 200 200 Balance 200 200 Intake: Other 200 200 Other: Voiding Method Toilet Toilet Toilet - Labs CBC & Chem 7: 11/24/19 11:07 11/23/19 05:41 Labs: Abnormal Lab Results - Last 24 Hours (Table) 11/24/19 Range/Units 11:07 Hgb 11.2 L (11.4-16.0) gm/dL Microbiology - Last 24 Hours (Table) 11/21/19 19:15 Blood Culture - Preliminary Blood No Growth after 48 hours
[2019-11-24] MEDS: VANCOMYCIN 2,500 MG in SODIUM CHLORIDE 0.9% 500 ML 500 ML IVPB SCH (11:55)
[2019-11-24] MEDS ORDERED: FUROSEMIDE 10 MG/ML 2 ML VIAL IV ONE (14:30)
[2019-11-24] MEDS: diphenhydrAMINE 25 MG CAP PO PRN (22:14)
--- NOTE | 2019-11-24 23:40 | P.PN ---
Subjective Progress Note Date: 11/24/19 Principal diagnosis: Left lower extremity cellulitis Abdominal pain resolved now Patient is a 49-year-old female with a known history of heavy menstrual bleeding, chronic edema of the right ankle with history of injury and hardware in place and history of left leg with hardware in place and occasional alcohol use presents to ER with the complaints of abdominal pain started around 3 PM yesterday. Patient states that she was at her aunt's house. When she came home she developed abdominal pain mainly in the right flank is worse with strong urgency to pee. Patient felt very shaky and cold when she got home. Patient states that her pain radiated to the back. No history of previous renal stones. Denies any dysuria or hematuria. No nausea vomiting or diarrhea. No complaints of chest pain or shortness of breath. No cough or sputum production. No recent illnesses. Patient states that she has been having chronic itching of the bilateral lower extremities and has prior cellulitis. Patient was febrile with T-max 100.5 on admission and was tachycardic. Laboratory data showed WBC 25.0, hemoglobin 12.9, platelets 297 Sodium 134, potassium 3.9, chloride 102, BUN 9 and creatinine 0.67 lactic acid 2.4 Urinalysis showed cloudy with negative leukocyte esterase and 1 RBC and [address] of abdominal pelvis showed no evidence of renal stone or obstruction. No evidence of appendicitis. KUB x-ray showed nonacute abdomen. 11/23/2019 Patient is currently lying in the bed comfortably. No complaints of abdominal pain. No nausea vomiting or diarrhea. Otherwise patient did have left lower exudate distal leg is not extending up to the left knee no drainage noted. Zuly ent has been afebrile.. Antibiotics will be changed to vancomycin and follow-upin the next 24 hours. 11/24/2019 Patient is currently lying in the bed comfortably. Denied any complaints of abdominal pain. Abdominal pain is resolved after passing the stone. Otherwise of left lower extremity redness improved but swelling is still present. Wheezing serous discharge. No foot tenderness noted. Patient is being continued on vancomycin and IV fluids have been discontinued. Continue with antibiotics another 24 hours. No complaints of chest pain or shortness breath. No fever no chills. Leukocytosis resolved. No nausea vomiting or diarrhea. Current medications reviewed. Objective - Vital Signs Vital signs: Vital Signs Temp 98 F 11/24/19 15:47 Pulse 77 09/03/20 15:47 Resp 16 11/24/19 15:47 BP 136/81 11/24/19 15:47 Pulse Ox 98 11/24/19 15:47 Intake & Output 11/24/19 11/24/19 11/25/19 06:59 18:59 06:59 Intake Total 200 400 Balance 200 400 Intake: Other 200 400 Other: Voiding Method Toilet Toilet - Exam PHYSICAL EXAMINATION: Patient is lying in the bed comfortably, no acute distress, awake alert and or iented.. HEENT: Normocephalic. Neck is supple. Pupils reactive. Nostrils clear. Oral cavity is moist. Ears reveal no drainage. Neck reveals no JVD, carotid bruits, or thyromegaly. CHEST EXAMINATION: Trachea is central. Symmetrical expansion. Bibasilar diminished air entry. Lung kaur clear to auscultation and percussion. CARDIAC: Normal S1, S2 with no gallops. No murmurs ABDOMEN: Soft.Mild right lower abdominal pain. Bowel sounds normal. No organomegaly. No abdominal bruits. Extremities: Patient does have chronic bilateral lower extremity lymphedema. No clubbing or cyanosis Left lower extremity redness and warmth and mild tenderness. Redness extending up to the knee. Neurologically awake, alert, oriented x3 with well-coordinated movements. No focal deficits noted Skin: No rash or skin lesions. Psychiatric: Coperative. Nonsuicidal Musculoskeletal: No joint swelling or deformity. Normal range of motion. - Labs CBC & Chem 7: 11/24/19 11:07 11/23/19 05:41 Labs: Abnormal Lab Results - Last 24 Hours (Table) 11/24/19 Range/Units 11:07 Hgb 11.2 L (11.4-16.0) gm/dL Microbiology - Last 24 Hours (Table) 11/21/19 19:15 Blood Culture - Preliminary Blood No Growth after 72 hours Assessment and Plan Assessment: Right sided abdominal pain/flank pain likely related to renal colic-Likely due to passage of stone Hyperkinetic gallbladder as per hepatobiliary scan without evidence of acute cholecystitis. Left lower extremity cellulitis Sepsis secondary to cellulitis History of bilateral lower extremity surgery with hardware in place Morbid obesity BMI 61.5 DVT prophylaxis Heparin subcu Plan: Patient will be continued on IV hydration and pain management. Continue with antibiotics in the form of Zosyn. Antibiotics changed to vancomycin. Right flank pain most likely secondary to acute colicky pain due to passage of stone. Pain is resolved now. No evidence of infection was noted in my urinalysis. Patient also noticed passing small stone today afternoon. HIDA scan showed no evidence of acute cholecystitis. No surgical intervention as per general surgery. Anticipate discharge tomorrow with oral antibiotics. Further recommendations based on the clinical course. Time with Patient: Greater than 30
[2019-11-25] MEDS: VANCOMYCIN 2,500 MG in SODIUM CHLORIDE 0.9% 500 ML 500 ML IVPB SCH ×2 (00:10→11:55)
[2019-11-25] MEDS: HEPARIN SODIUM,PORCINE 5,000 UNIT/ML 1 ML VIAL SQ SCH ×3 (00:10→16:50)
[2019-11-25 06:22] LABS: Basophils # (A) 0.1 k/uL (0-0.2); Basophils % (A) 1 %; Eosinophils # (A) 0.7 k/uL (0-0.7); Eosinophils % (A) 8 %; HCT 37.4 % (34.0-46.0); HGB 11.4 gm/dL (11.4-16.0); Lymphocytes # (A) 1.8 k/uL (1.0-4.8); Lymphocytes % (A) 21 %; MCHC 30.4 g/dL (31.0-37.0); Mean Platelet Volume 9.6; Monocytes # (A) 0.5 k/uL (0-1.0); Monocytes % (A) 6 %; Neutrophils # (A) 5.3 k/uL (1.3-7.7); Neutrophils % (A) 62 %; Platelet Count 316 k/uL (150-450); RBC 4.07 m/uL (3.80-5.40); RDW 13.7 % (11.5-15.5); WBC 8.5 k/uL (3.8-10.6)
[2019-11-25 06:48] LABS: African American GFR (CKD) >90 (>60 ml/min/1.73 sqM); Anion Gap 6 mmol/L; Blood Urea Nitrogen 8 mg/dL (7-17); Calcium 8.3 mg/dL (8.4-10.2); Carbon Dioxide 26 mmol/L (22-30); Chloride 106 mmol/L (98-107); Glucose 89 mg/dL (74-99); Non-African American GFR(CKD) >90 (>60 ml/min/1.73 sqM); Potassium 4.1 mmol/L (3.5-5.1); Sodium 138 mmol/L (137-145)
--- NOTE | 2019-11-25 12:29 | P.PN ---
Subjective Progress Note Date: 11/25/19 CHIEF COMPLAINT: right flank pain HISTORY OF PRESENT ILLNESS: Patient presented with right flank pain likely due to passing a kidney stone. She did pass a kidney stone in the observation unit. She also was found to have a hyperkinetic gallbladder on HIDA scan. She denies any abdominal pain. She's tolerating diet. Denies any nausea vomiting. Afebrile. PHYSICAL EXAM: VITAL SIGNS: Reviewed. GENERAL: Well-developed in no acute distress. HEENT: No sclera icterus. Extraocular movements grossly intact. Moist buccal mucosa. Head is atraumatic, normocephalic. ABDOMEN: Soft. Nondistended. Nontender. NEUROLOGIC: Alert and oriented. Cranial nerves II through XII grossly intact. ASSESSMENT: 1. Right flank pain likely secondary to passing a kidney stone. now resolved 2. Hyperkinetic gallbladder 3. Right leg cellulitis PLAN: -No surgical intervention planned -Patient follow up with Dr. Penaloza in the office in one week -Antibiotics per primary -DVT prophylaxis subcu heparin Physician Mold Sander note has been reviewed by physician. Signing provider agrees with the documented findings, assessment, and plan of care. Objective - Vital Signs Vital signs: Vital Signs Temp 98.4 F 11/25/19 09:00 Pulse 74 11/25/19 09:00 Resp 18 11/25/19 09:00 BP 132/85 11/25/19 09:00 Pulse Ox 97 11/25/19 09:00 Intake & Output 11/24/19 11/25/19 11/25/19 18:59 06:59 18:59 Intake Total 400 1230 Balance 400 1230 Intake: Oral 1230 Other 400 Other: Voiding Method Toilet Toilet Toilet # Voids 1 - Labs CBC & Chem 7: 11/25/19 06:04 11/25/19 06:04 Labs: Abnormal Lab Results - Last 24 Hours (Table) 11/25/19 11/25/19 Range/Units 06:04 06:04 MCHC 30.4 L (31.0-37.0) g/dL Calcium 8.3 L (8.4-10.2) mg/dL Microbiology - Last 24 Hours (Table) 11/21/19 19:15 Blood Culture - Preliminary Blood No Growth after 72 hours
[2019-11-25] MEDS: diphenhydrAMINE 25 MG CAP PO PRN (13:10)
[2019-11-25] MEDS: CLINDAMYCIN 900 MG in DEXTROSE 5% IN WATER 50 ML IVPB SCH ×4 (16:50→23:33)
[2019-11-25] MEDS ORDERED: VANCOMYCIN TROUGH DUE 1 EACH MISC MISCELLANE ONE (23:00)
[2019-11-26] MEDS: VANCOMYCIN 2,500 MG in SODIUM CHLORIDE 0.9% 500 ML 500 ML IVPB SCH (00:02)
[2019-11-26] MEDS: diphenhydrAMINE 25 MG CAP PO PRN (00:02)
[2019-11-26] MEDS: HEPARIN SODIUM,PORCINE 5,000 UNIT/ML 1 ML VIAL SQ SCH ×3 (00:06→16:30)
--- NOTE | 2019-11-26 00:11 | P.CONS ---
History of Present Illness - Reason for Consult Consult date: 11/25/19 Left lower extremity cellulitis Requesting physician: Sanjay Booth - Chief Complaint Left leg swelling and redness x few days - History of Present Illness Patient is a 49 year female presented to hospital on 11/21/2019 with a chief complaints of right flank pain with some radiation to the front, patient denies any burning or frequency of urine did have a fever on presentation to the hospital, and did have elevated white count of 22,000 patient did have a [address] of abdominal pelvis with no evidence of renal stone and obstruction no evidence of appendicitis patient subsequently was noticed to have significant redness of the left lower extremity for the patient was started on vancomycin, patient been complaining of pain to the left leg is mostly sharp in the leg and intensity of 6-7 out of 10 patient currently denies having skin breakdown or any drainage did have previous history of lower extremity cellulitis Review of Systems Positive point has been mentioned in the HPI rest of the systems are negative Past Medical History Past Medical History: No Reported History Additional Past Medical History / Comment(s): HEAVY MENSTRUAL BLEEDING., EDEMA RIGHT ANKLE (HX OF INJURY WITH SURGERY & HARDWARE IN PLACE.) HX OF INJURY LEFT LEG WITH HARDWARE IN PLACE. History of Any Multi-Drug Resistant Organisms: None Reported Past Surgical History: Orthopedic Surgery, Tonsillectomy, Tubal Ligation Additional Past Surgical History / Comment(s): right ankle surgery with plate & bolts., plates and screws in left leg , D & C., Uterine ablation 12/21/17 Past Anesthesia/Blood Transfusion Reactions: No Reported Reaction Past Psychological History: No Psychological Hx Reported Smoking Status: Never smoker Past Alcohol Use History: Occasional Past Drug Use History: None Reported - Past Family History Father Family Medical History: Coronary Artery Disease (CAD), Myocardial Infarction (PR) Mother Family Medical History: COPD, Hypertension Medications and Allergies Allergies Allergy/AdvReac Type Severity Reaction Status Date / Time cephalexin [From Keflex] Allergy FEVER Verified 11/21/19 20:50 Physical Exam Vitals: Vital Signs Temp Pulse Resp BP BP Pulse Ox 11/25/19 13:58 97.0 F L 69 16 131/61 97 11/25/19 09:00 98.4 F 73 18 132/85 97 11/25/19 03:00 98.4 F 67 17 137/89 99 11/24/19 21:00 98.4 F 85 18 132/82 98 11/24/19 15:47 98 F 77 16 136/81 98 Intake and Output 11/24/19 11/25/19 11/25/19 22:59 06:59 14:59 Intake Total 730 500 Balance 730 500 Intake: Oral 730 500 Other: Voiding Method Toilet Toilet Toilet # Voids 1 1 1 GENERAL DESCRIPTION: Middle-aged female lying in bed, no distress. No tachypnea or accessory muscle of respiration use. HEENT: Shows Pallor , no scleral icterus. Oral mucous membrane is dry. No pharyngeal erythema or thrush NECK: Trachea central, no thyromegaly. LUNGS: Unlabored breathing. Clear to auscultation anteriorly. No wheeze or crackle. HEART: S1, S2, regular rate and rhythm. No loud murmur ABDOMEN: Soft, no tenderness , guarding or rigidity, no organomegaly EXTREMITIES: Diffuse swelling of bilateral lower extremity left leg did have more swelling and redness as well as warmth to touch SKIN: No rash, no masses palpable. NEUROLOGICAL: The patient is awake, alert, oriented x3, mood and affect normal. Results CBC & Chem 7: 11/25/19 06:04 11/25/19 06:04 Labs: Abnormal Lab Results - Last 24 Hours (Table) 11/25/19 11/25/19 Range/Units 06:04 06:04 MCHC 30.4 L (31.0-37.0) g/dL Calcium 8.3 L (8.4-10.2) mg/dL Microbiology - Last 24 Hours (Table) 11/21/19 19:15 Blood Culture - Preliminary Blood No Growth after 72 hours Assessment and Plan Assessment: 1- patient presented to hospital with sepsis this patient who did have fever and elevated white count source likely lower extremity cellulitis in this patient did have diffuse swelling redness likely streptococcal disease 2- patient with Keflex ALLERGY that will limit the number of antibiotic safety use (1) Sepsis Current Visit: Yes Status: Acute Code(s): A41.9 - SEPSIS, UNSPECIFIED ORGANISM SNOMED Code(s): 78718669 (2) Left leg cellulitis Current Visit: Yes Status: Acute Code(s): L03.116 - CELLULITIS OF LEFT LOWER LIMB SNOMED Code(s): 560346260 (3) Allergy to cephalosporin Current Visit: Yes Status: Acute Code(s): Z88.1 - ALLERGY STATUS TO OTHER ANTIBIOTIC AGENTS STATUS SNOMED Code(s): 145460999 Plan: 1- marked the area redness left leg 2-Mannie wrap to the left leg from just above the toe to below the knee 3- Vancomycin pharmacy to dose target trough of 15 while watching her kidney function and Vanco trough closely 4- we'll add clindamycin 900 every 8 hours We will follow on clinical condition and cultures to further adjust medication if needed Thank you for this consultation will follow this patient with you Time with Patient: Greater than 30
[2019-11-26 07:36] LABS: Basophils # (A) 0.1 k/uL (0-0.2); Basophils % (A) 1 %; Eosinophils # (A) 0.8 k/uL (0-0.7); Eosinophils % (A) 9 %; HCT 37.6 % (34.0-46.0); HGB 11.7 gm/dL (11.4-16.0); Hypochromasia Slight; Lymphocytes # (A) 1.5 k/uL (1.0-4.8); Lymphocytes % (A) 18 %; MCH 28.7 pg (25.0-35.0); MCV 92.6 fL (80.0-100.0); Monocytes # (A) 0.5 k/uL (0-1.0); Monocytes % (A) 6 %; Neutrophils # (A) 5.7 k/uL (1.3-7.7); Neutrophils % (A) 65 %; Platelet Count 335 k/uL (150-450); RBC 4.06 m/uL (3.80-5.40); RDW 13.8 % (11.5-15.5); WBC 8.7 k/uL (3.8-10.6)
[2019-11-26 07:53] LABS: African American GFR (CKD) >90 (>60 ml/min/1.73 sqM); Anion Gap 6 mmol/L; Blood Urea Nitrogen 9 mg/dL (7-17); Calcium 8.2 mg/dL (8.4-10.2); Carbon Dioxide 24 mmol/L (22-30); Chloride 106 mmol/L (98-107); Glucose 88 mg/dL (74-99); Non-African American GFR(CKD) >90 (>60 ml/min/1.73 sqM); Potassium 4.4 mmol/L (3.5-5.1); Sodium 136 mmol/L (137-145)
[2019-11-26] MEDS: CLINDAMYCIN 900 MG in DEXTROSE 5% IN WATER 50 ML IVPB SCH ×2 (08:24)
[2019-11-26 09:14] VITALS: BP 150/80; PULSE 78; RESP 16; TEMP 97.2
--- NOTE | 2019-11-26 09:16 | P.PN ---
Subjective Progress Note Date: 11/25/19 Principal diagnosis: Cellulitis left lower extremity 49 year female presented to hospital on 11/21/2019 with a chief complaints of right flank pain with some radiation to the front, patient denies any burning or frequency of urine did have a fever on presentation to the hospital, and did have elevated white count of 22,000 patient did have a [address] of abdominal pelvis with no evidence of renal stone and obstruction no evidence of appendicitis patient subsequently was noticed to have significant redness of the left lower extremity for the patient was started on vancomycin, patient been complaining of pain to the left leg is mostly sharp in the leg and intensity of 6-7 out of 10 patient currently denies having skin breakdown or any drainage did have previous history of lower extremity cellulitis 11/25/19 Patient seen and evaluated in room at bedside; patient quite frustrated due to prolonged hospital stay and inquiring about oral antibiotics and discharge Lab review shows a white blood count of 8.5, hemoglobin 11.4 and platelet count of 316 On examination patient's left lower extremity continues to be warm and erythematous; ID is consulted; possibility of streptococcal disease causing severe and diffuse swelling and redness; ID is recommending to continue with IV vancomycin per pharmacy dosing; clindamycin 900 mg every 8 hours is added; we will continue to monitor CBC with further adjustments if needed Objective - Vital Signs Vital signs: Vital Signs Temp 97.0 F L 11/25/19 13:58 Pulse 74 11/25/19 13:58 Resp 18 11/25/19 13:58 BP 131/61 11/25/19 13:58 Pulse Ox 97 11/25/19 13:58 Intake & Output 11/24/19 11/25/19 11/25/19 18:59 06:59 18:59 Intake Total 400 1230 Balance 400 1230 Intake: Oral 1230 Other 400 Other: Voiding Method Toilet Toilet Toilet # Voids 1 1 - Exam HEENT: Shows Pallor , no scleral icterus. Oral mucous membrane is dry. No pharyngeal erythema or thrush NECK: Trachea central, no thyromegaly. LUNGS: Unlabored breathing. Clear to auscultation anteriorly. No wheeze or crackle. HEART: S1, S2, regular rate and rhythm. No loud murmur ABDOMEN: Soft, no tenderness , guarding or rigidity, no organomegaly EXTREMITIES: Diffuse swelling of bilateral lower extremity left leg did have more swelling and redness as well as warmth to touch SKIN: No rash, no masses palpable. - Labs CBC & Chem 7: 11/26/19 07:15 11/26/19 07:15 Labs: Abnormal Lab Results - Last 24 Hours (Table) 11/25/19 11/25/19 Range/Units 06:04 06:04 MCHC 30.4 L (31.0-37.0) g/dL Calcium 8.3 L (8.4-10.2) mg/dL Microbiology - Last 24 Hours (Table) 11/21/19 19:15 Blood Culture - Preliminary Blood No Growth after 72 hours Assessment and Plan Assessment: Right sided abdominal pain/flank pain likely related to renal colic-Likely due to passage of stone Hyperkinetic gallbladder as per hepatobiliary scan without evidence of acute cholecystitis. Left lower extremity cellulitis Sepsis secondary to cellulitis History of bilateral lower extremity surgery with hardware in place Morbid obesity BMI 61.5 DVT prophylaxis Heparin subcu Plan: Patient will be continued on IV hydration and pain management. Continue with antibiotics in the form of vancomycin; ID is consulted as indicated above and clindamycin is admitted; we will monitor clinically for any further adjustments. Right flank pain most likely secondary to acute colicky pain due to passage of stone. Pain is resolved now. No evidence of infection was noted in my urinalysis. Patient also noticed passing small stone today afternoon. HIDA scan showed no evidence of acute cholecystitis. No surgical intervention as per general surgery. Time with Patient: Greater than 30
[2019-11-26] MEDS ORDERED: VANCOMYCIN 2,000 MG in SODIUM CHLORIDE 0.9% 500 ML 500 ML IVPB SCH (12:00)
--- NOTE | 2019-11-26 14:21 | P.DS ---
Providers Date of admission: 11/23/19 12:30 Expected date of discharge: 11/26/19 Attending physician: David Harris MD Consults: 11/21/19 19:14 Consult Physician Urgent Consulting Provider: Marcial Penaloza Consult Reason/Comments: Abdominal pain Do you want consulting provider notified?: Yes 11/25/19 12:44 Consult Physician Routine Consulting Provider: Josie Lundberg Consult Reason/Comments: cellulitis LLE Do you want consulting provider notified?: Yes Primary care physician: Pardeep Nunez [facility] Course: Patient is a 49-year-old female with a known history of heavy menstrual bleeding, chronic edema of the right ankle with history of injury and hardware in place and history of left leg with hardware in place and occasional alcohol use presents to ER with the complaints of abdominal pain started around 3 PM yesterday. Patient states that she was at her aunt's house. When she came home she developed abdominal pain mainly in the right flank is worse with strong urgency to pee. Patient felt very shaky and cold when she got home. Patient states that her pain radiated to the back. No history of previous renal stones. Denies any dysuria or hematuria. No n ausea vomiting or diarrhea. No complaints of chest pain or shortness of breath. No cough or sputum production. No recent illnesses. Patient states that she has been having chronic itching of the bilateral lower extremities and has prior cellulitis. Patient was febrile with T-max 100.5 on admission and was tachycardic. Laboratory data showed WBC 25.0, hemoglobin 12.9, platelets 297 Sodium 134, potassium 3.9, chloride 102, BUN 9 and creatinine 0.67 lactic acid 2.4 Urinalysis showed cloudy with negative leukocyte esterase and 1 RBC and [address] of abdominal pelvis showed no evidence of renal stone or obstruction. No evidence of appendicitis. KUB x-ray showed nonacute abdomen. 11/23/2019 Patient is currently lying in the bed comfortably. No complaints of abdominal pain. No nausea vomiting or diarrhea. Otherwise patient did have left lower exudate distal leg is not extending up to the left knee no drainage noted. Patient has been afebrile.. Antibiotics will be changed to vancomycin and follow-upin the next 24 hours, 11/24/2019 Patient is currently lying in the bed comfortably. Denied any complaints of abdominal pain. Abdominal pain is resolved after passing the stone. Otherwise of left lower extremity redness improved but swelling is still present. Wheezing serous discharge. No foot tenderness noted. Patient is being continued on vancomycin and IV fluids have been discontinued. Continue with antibiotics another 24 hours. 11/25/19 Patient seen and evaluated in room at bedside; patient quite frustrated due to prolonged hospital stay and inquiring about oral antibiotics and discharge Lab review shows a white blood count of 8.5, hemoglobin 11.4 and platelet count of 316 On examination patient's left lower extremity continues to be warm and erythematous; ID is consulted; possibility of streptococcal disease causing severe and diffuse swelling and redness; ID is recommending to continue with IV vancomycin per pharmacy dosing; clindamycin 900 mg every 8 hours is added; we will continue to monitor CBC with further adjustments if needed 11/26/2019; patient shows improvement with clindamycin and vancomycin; has been reevaluated by ID and is recommended to be discharged home on oral clindamycin Plan - Discharge Summary Discharge Rx Participant: No New Discharge Prescriptions: New Clindamycin [Cleocin] 300 mg PO TID 10 Days #60 cap Discharge Medication List Clindamycin [Cleocin] 300 mg PO TID 10 Days #60 cap 11/26/19 [Rx] Follow up Appointment(s)/Referral(s): Yulia Roberto MD [Primary Care Provider] - 11/30/19 1:00 pm Marcial Penaloza MD [STAFF PHYSICIAN] - 12/01/19 3:00 pm Activity/Diet/Wound Care/Special Instructions: Clindamycin 300mg TID for [address] Lundberg
--- NOTE | 2019-11-26 15:25 | PN ---
PROGRESS NOTE DATE OF SERVICE: 11/26/2019 REASON FOR FOLLOWUP: Left lower extremity cellulitis. INTERVAL HISTORY: Patient is currently afebrile. The patient is feeling better. Breathing comfortably. Overall, left leg swelling and redness has decreased. No chest pain or cough. No abdominal pain, no diarrhea. PHYSICAL EXAMINATION: Blood pressure 150/80 with a pulse of 78, temperature 97.2. She is 96% on room air. General description is a middle-aged female lying in bed in no distress. Respiratory system: Unlabored breathing, clear to auscultation anteriorly. Heart S1, S2. Regular rate and rhythm. Abdomen with no tenderness. Left leg swelling and redness slightly decreased. LABS: Hemoglobin 9.7, white count of 8.7. DIAGNOSTIC IMPRESSION AND PLAN: Patient with acute left lower extremity cellulitis with diffuse swelling and redness, likely streptococcal disease. Clinically improved with addition of clindamycin. Patient has allergy to KEFLEX. She will finish therapy with oral clindamycin 300 every 6 hours for 7 days. She has been advised to increase her probiotic and yogurt intake. Continue supportive care. MMODL / IJN: [id number] /
[2019-11-26] MEDS ORDERED: CLINDAMYCIN 150 MG CAP PO SCH (18:00)
== END 2019-11-26 17:05 | disposition home or self-care (01) | DRG 872 ==
LOC: EC 17:05 → 1SOBS 19:16 → OBSVTOIN 11-23 12:30
PROVIDERS: ADMIT Internal Medicine; ATTEND Internal Medicine
PROC: 05HF33Z Insertion of Infusion Device into Left Cephalic Vein, Percutaneous Approach (ICD-10-PCS; principal; 2019-11-24)
DX: A40.9 Streptococcal sepsis, unspecified (principal); L03.116 Cellulitis of left lower limb; Z68.44 Body mass index [BMI] 60.0-69.9, adult; N20.0 Calculus of kidney; E66.01 Morbid (severe) obesity due to excess calories; R32 Unspecified urinary incontinence; K82.8 Other specified diseases of gallbladder; Z79.899 Other long term (current) drug therapy; Z88.1 Allergy status to other antibiotic agents; Z98.890 Other specified postprocedural states; Z98.51 Tubal ligation status; Z82.49 Family history of ischemic heart disease and other diseases of the circulatory system; Z82.5 Family history of asthma and other chronic lower respiratory diseases; Z90.89 Acquired absence of other organs; Z87.42 Personal history of other diseases of the female genital tract
CPT/HCPCS: 36410; 36415; 74018; 74176; 76937; 78227; 80048; 80053; 80202; 81001; 82150; 83605; 83690; 85025; 87040; 96365; 96375; 99285

== ENCOUNTER → 2021-04-02 | Outpatient (CLI) | payer BC ==
--- NOTE | 2021-04-04 11:56 | MM ---
Reason for exam: screening (asymptomatic). Last mammogram was performed 2 years and 2 months ago. History: Patient is postmenopausal. Took hormonal contraceptives for 2 years. Physical Findings: A clinical breast exam by your physician is recommended on an annual basis and results should be correlated with mammographic findings. MG Screening Mammo w CAD Bilateral CC and MLO view(s) were taken. Prior study comparison: January 31, 2019, bilateral MG screening mammo w CAD. There are scattered fibroglandular densities. There are benign appearing round calcifications bilaterally. There is no discrete abnormality. ASSESSMENT: Benign, BI-RAD 2 RECOMMENDATION: Routine screening mammogram of both breasts in 1 year.
== END | disposition home or self-care (01) ==
LOC: RADMAMWWP 12:32
PROVIDERS: ATTEND Internal Medicine
DX: Z12.31 Encounter for screening mammogram for malignant neoplasm of breast (principal); Z78.0 Asymptomatic menopausal state
CPT/HCPCS: 77067

== ENCOUNTER 2023-05-26 04:17 | Observation (INO) | payer BC, MEDICARE, OTHER ==
[2023-05-26 05:48] LABS: Basophils % (A) 0 %; Eosinophils # (A) 0.5 k/uL (0-0.7); Eosinophils % (A) 4 %; HCT 34.8 % (34.0-46.0); HGB 11.1 gm/dL (11.4-16.0); Lymphocytes # (A) 1.9 k/uL (1.0-4.8); Lymphocytes % (A) 15 %; MCH 28.6 pg (25.0-35.0); MCHC 31.9 g/dL (31.0-37.0); MCV 89.5 fL (80.0-100.0); Mean Platelet Volume 8.5; Monocytes # (A) 0.6 k/uL (0-1.0); Monocytes % (A) 4 %; Neutrophils # (A) 9.8 k/uL (1.3-7.7); Neutrophils % (A) 76 %; Platelet Count 557 k/uL (150-450); RBC 3.89 m/uL (3.80-5.40); WBC 12.9 k/uL (3.8-10.6)
[2023-05-26] MEDS: NAFCILLIN 2 GM in DEXTROSE 5% IN WATER 100 ML IVPB STA (05:50)
[2023-05-26] MEDS: MORPHINE SULFATE 4 MG/ML SYRINGE IV STA (05:55)
[2023-05-26 06:00] LABS: ALT 30 U/L (4-34); AST 43 U/L (14-36); African American GFR (CKD) >90 (>60 ml/min/1.73 sqM); Albumin 3.5 g/dL (3.5-5.0); Alkaline Phosphatase 91 U/L (38-126); Anion Gap 7 mmol/L; Blood Urea Nitrogen 14 mg/dL (7-17); C Reactive Protein 3.3 mg/dL (<1.0); Calcium 8.6 mg/dL (8.4-10.2); Carbon Dioxide 24 mmol/L (22-30); Chloride 107 mmol/L (98-107); Glucose 101 mg/dL (74-99); Non-African American GFR(CKD) >90 (>60 ml/min/1.73 sqM); Sodium 138 mmol/L (137-145); Total Bilirubin 0.6 mg/dL (0.2-1.3); Total Protein 7.6 g/dL (6.3-8.2)
[2023-05-26 06:12] LABS: Potassium 4.8 mmol/L (3.5-5.1)
--- NOTE | 2023-05-26 07:50 | ED ---
Extremity Problem HPI - General Chief complaint: Extremity Problem,Nontraumatic Stated complaint: cellulitis left leg Time Seen by Provider: 05/26/23 04:41 Source: patient, family Mode of arrival: wheelchair Limitations: no limitations - History of Present Illness Initial comments: This patient is a 52-year-old woman who presents to have evaluation of left leg pain and swelling that she states is similar to her previous episodes of cellulitis. The patient states she was in fact admitted at [facility] on and diagnosed with cellulitis. She states that she was being given vancomycin for the cellulitis and that this always causes her to have redness and burning of the skin as well as itching and for this reason she signed out AGAINST MEDICAL ADVICE on Thursday. Patient states she continues to have swelling and redness and pain. She has had intermittent fevers. She does not currently have a primary physician for any further treatment. MD Complaint: extremity pain, extremity swelling -: days(s) Location: left, lower extremity History of Same: Yes -: Yes fever Radiation: none Quality: burning, aching Consistency: constant Improves with: nothing Worsens with: nothing Associated Symptoms: fever - Related Data Previous Rx's Medication Instructions Recorded Ammonium Lactate Lotion 1 applic TOPICAL BID 30 Days #1 05/29/23 [Lac-Hydrin 12% Lotion] cream Amoxic-Pot Clav 875-125Mg 1 tab PO Q12HR 7 Days #14 tab 05/29/23 [Augmentin 875-125] Famotidine [Pepcid] 20 mg PO BID 30 Days #60 tab 05/29/23 Allergies Allergy/AdvReac Type Severity Reaction Status Date / Time magnesium salicylate Allergy Rash/Hives Verified 05/26/23 09:49 [From Diurex] silicone Allergy Rash/Hives Verified 05/26/23 09:49 vancomycin Allergy Swelling Verified 05/26/23 09:49 cephalexin [From Keflex] AdvReac FEVER Verified 05/26/23 09:49 Review of Systems ROS Statement: Those systems with pertinent positive or pertinent negative responses have been documented in the HPI. ROS Other: All systems not noted in ROS Statement are negative. Constitutional: Reports: fever. Denies: weakness Respiratory: Denies: cough, dyspnea Cardiovascular: Reports: edema. Denies: chest pain, palpitations, syncope Gastrointestinal: Denies: abdominal pain, vomiting, diarrhea Genitourinary: Denies: dysuria, hematuria Musculoskeletal: Denies: back pain Skin: Reports: as per HPI, rash Neurological: Denies: weakness, numbness Past Medical History Past Medical History: No Reported History Additional Past Medical History / Comment(s): HEAVY MENSTRUAL BLEEDING., EDEMA RIGHT ANKLE (HX OF INJURY WITH SURGERY & HARDWARE IN PLACE.) HX OF INJURY LEFT LEG WITH HARDWARE IN PLACE. History of Any Multi-Drug Resistant Organisms: None Reported Past Surgical History: Orthopedic Surgery, Tonsillectomy, Tubal Ligation Additional Past Surgical History / Comment(s): right ankle surgery with plate & bolts., plates and screws in left leg , D & C., Uterine ablation 12/21/17 Past Anesthesia/Blood Transfusion Reactions: No Reported Reaction Past Psychological History: No Psychological Hx Reported Smoking Status: Never smoker Past Alcohol Use History: Occasional Past Drug Use History: None Reported - Past Family History Father Family Medical History: Coronary Artery Disease (CAD), Myocardial Infarction ([place]) Mother Family Medical History: COPD, Hypertension General Exam Limitations: no limitations General appearance: alert, in no apparent distress Head exam: Present: atraumatic, normocephalic Eye exam: Present: normal appearance. Absent: scleral icterus, conjunctival injection Respiratory exam: Present: normal lung sounds bilaterally. Absent: respiratory distress, wheezes, rales, rhonchi, stridor, accessory muscle use Cardiovascular Exam: Present: regular rate, normal rhythm, normal heart sounds. Absent: systolic murmur, diastolic murmur, rubs, gallop GI/Abdominal exam: Present: soft. Absent: distended, tenderness, guarding, rebound, rigid Extremities exam: Present: tenderness, normal capillary refill, pedal edema. Absent: normal inspection, calf tenderness Neurological exam: Present: alert. Absent: motor sensory deficit Skin exam: Present: warm, dry, intact, erythema Course Vital Signs 05/26/23 05/26/23 05/26/23 04:18 06:00 08:22 Temperature 98.7 F 98.1 F Pulse Rate 82 77 78 Pulse Rate [ Pulse Oximetery ] Respiratory 18 18 18 Rate Blood Pressure 138/88 135/80 165/107 Blood Pressure [Left Arm] O2 Sat by Pulse 98 95 96 Oximetry 05/26/23 05/26/23 08:43 08:46 Temperature 97.8 F Pulse Rate Pulse Rate [ 89 Pulse Oximetery ] Respiratory 18 Rate Blood Pressure 144/87 Blood Pressure 99/73 [Left Arm] O2 Sat by Pulse 98 Oximetry Medical Decision Making - Medical Decision Making Patient is a 52-year-old woman here with lymphedema and now cellulitis of the left leg. The patient has reported reaction to vancomycin. She will be started on cephalosporin here which is listed as allergy in her chart but on reviewing the patient describes reaction that does not seem like true allergy. She will be admitted to ensure that there is no reaction to treatment and have infectious disease consultation. Was pt. sent in by a medical professional or institution (, PA, CLINICAL LABORATORY DIRECTOR, urgent care, hospital, or half-way...) When possible be specific @ -[No] Did you speak to anyone other than the patient for history (EMS, parent, family, police, friend...)? What history was obtained from this source @ -[No] Did you review nursing and triage notes (agree or disagree)? Why? @ -[I reviewed and agree with nursing and triage notes] Were old charts reviewed (outside hosp., previous admission, EMS record, old EKG, old radiological studies, urgent care reports/EKG's, half-way records)? Report findings @ -[No old charts were reviewed] Differential Diagnosis (chest pain, altered mental status, abdominal pain women, abdominal pain men, vaginal bleeding, weakness, fever, dyspnea, syncope, headache, dizziness, GI bleed, back pain, seizure, CVA, palpatations, mental health, musculoskeletal)? @ -[Differential Musculoskeletal Muscular strain, contusion, ligament sprain, fracture, arthritis, septic arthritis, bursitis, cellulitis, muscle spasm, nerve compression, DVT, arterial occlusion, herpes zoster, electrolyte abnormality, tumor.... This is not meant to be in all inclusive list EKG interpreted by me (3pts min.). @ -[As above] X-rays interpreted by me (1pt min.). @ -[None done] CT interpreted by me (1pt min.). @ -[None done] U/S interpreted by me (1pt. min.). @ -[None done] What testing was considered but not performed or refused? (CT, X-rays, U/S, labs)? Why? @ -[None] What meds were considered but not given or refused? Why? @ -[None] Did you discuss the management of the patient with other professionals (professionals i.e. , PA, CLINICAL LABORATORY DIRECTOR, lab, RT, psych nurse, perinatal social worker, glove parts cutter, teacher, nuclear security officer, case liner)? Give summary @ -[Case discussed with admitting physician and treatment recommendations are incorporated Was smoking cessation discussed for >3mins.? @ -[No] Was critical care preformed (if so, how long)? @ -[No] Were there social determinants of health that impacted care today? How? (Homelessness, low income, unemployed, alcoholism, drug addiction, transportation, low edu. Level, literacy, decrease access to med. care, longterm, rehab)? @ -[No] Was there de-escalation of care discussed even if they declined (Discuss DNR or withdrawal of care, Hospice)? DNR status @ -[No] What co-morbidities impacted this encounter? (DM, HTN, Smoking, COPD, CAD, Cancer, CVA, ARF, Chemo, Hep., AIDS, mental health diagnosis, sleep apnea, morbid obesity)? @ -[Lymphedema, morbid obesity Was patient admitted / discharged? Hospital course, mention meds given and route, prescriptions, significant lab abnormalities, going to OR and other pertinent info. @ -[This patient is a 52-year-old woman with lymphedema and now developing cellulitis of the left leg. Patient will be admitted to start antibiotics and ensure that there is response to treatment. Patient will also be observed as she has had previous reaction to some antibiotics and is at risk of reaction with current treatment Undiagnosed new problem with uncertain prognosis? @ -[No] Drug Therapy requiring intensive monitoring for toxicity (Heparin, Nitro, Insulin, Cardizem)? @ -[No] Were any procedures done? @ -[No] Diagnosis/symptom? @ -[Acute left leg cellulitis Chronic lymphedema Acute, or Chronic, or Acute on Chronic? @ -[Acute Uncomplicated (without systemic symptoms) or Complicated (systemic symptoms)? @ -[Uncomplicated Side effects of treatment? @ -[No] Exacerbation, Progression, or Severe Exacerbation? @ -[No] Poses a threat to life or bodily function? How? (Chest pain, [place], [place], pneumonia, PE, COPD, DKA, ARF, appy, cholecystitis, CVA, Diverticulitis, Homicidal, Suicidal, threat to staff... and all critical care pts) @ -[Yes, unmanaged cellulitis can progress to sepsis/worsening infection - Lab Data Result diagrams: 05/28/23 07:03 05/28/23 07:03 Lab Results 05/26/23 05/26/23 Range/Units 05:36 05:36 WBC 12.9 H (3.8-10.6) k/uL RBC 3.89 (3.80-5.40) m/uL Hgb 11.1 L (11.4-16.0) gm/dL Hct 34.8 (34.0-46.0) % MCV 89.5 (80.0-100.0) fL MCH 28.6 (25.0-35.0) pg MCHC 31.9 (31.0-37.0) g/dL RDW 14.0 (11.5-15.5) % Plt Count 557 H (150-450) k/uL MPV 8.5 Neutrophils % 76 % Lymphocytes % 15 % Monocytes % 4 % Eosinophils % 4 % Basophils % 0 % Neutrophils # 9.8 H (1.3-7.7) k/uL Lymphocytes # 1.9 (1.0-4.8) k/uL Monocytes # 0.6 (0-1.0) k/uL Eosinophils # 0.5 (0-0.7) k/uL Basophils # 0.0 (0-0.2) k/uL Sodium 138 (137-145) mmol/L Potassium 4.8 (3.5-5.1) mmol/L Chloride 107 (98-107) mmol/L Carbon Dioxide 24 (22-30) mmol/L Anion Gap 7 mmol/L BUN 14 (7-17) mg/dL Creatinine 0.68 (0.52-1.04) mg/dL Est GFR (CKD-EPI)AfAm >90 (>60 ml/min/1.73 sqM) Est GFR (CKD-EPI)NonAf >90 (>60 ml/min/1.73 sqM) Glucose 101 H (74-99) mg/dL Calcium 8.6 (8.4-10.2) mg/dL Total Bilirubin 0.6 (0.2-1.3) mg/dL AST 43 H (14-36) U/L ALT 30 (4-34) U/L Alkaline Phosphatase 91 (38-126) U/L C-Reactive Protein 3.3 H (<1.0) mg/dL Total Protein 7.6 (6.3-8.2) g/dL Albumin 3.5 (3.5-5.0) g/dL Disposition Clinical Impression: Left leg cellulitis, Allergy to multiple antibiotics Disposition: ADMITTED IP TO THIS HOSP Condition: Stable Is patient prescribed a controlled substance at d/c from ED?: No
[2023-05-26] MEDS ORDERED: MAG HYDROX/AL HYDROX/SIMETH 30 ML CUP PO PRN (07:59)
[2023-05-26] MEDS ORDERED: ACETAMINOPHEN TAB 325 MG TAB PO PRN (07:59)
[2023-05-26] MEDS ORDERED: ONDANSETRON 4 MG/2 ML VIAL IVP PRN (07:59)
[2023-05-26] MEDS ORDERED: NALOXONE 0.4 MG/ML 1 ML VIAL IV PRN (07:59)
[2023-05-26] MEDS: FAMOTIDINE 20 MG TAB PO SCH (08:23)
[2023-05-26] MEDS: HEPARIN SODIUM,PORCINE 5,000 UNIT/ML 1 ML VIAL SQ SCH (08:24)
[2023-05-26] MEDS: SODIUM CHLORIDE 0.9% 1,000 ML IV SCH (08:25)
[2023-05-26] MEDS: CEFEPIME 2 GM in SODIUM CHLORIDE 0.9% 100 ML IVPB SCH ×2 (12:01→21:40)
--- NOTE | 2023-05-26 13:53 | P.HPIM ---
History of Present Illness H&P Date: 05/26/23 History of Presenting Illness: Patient is a very pleasant 52-year-old female with a past medical history of lymphedema bilateral lower extremities. She presented to the emergency department with a chief complaint of left lower extremity pain and swelling. She reports this initially began last week and was admitted on to [facility]. She was diagnosed with cellulitis and started on IV antibiotics with vancomycin. However, patient reports she was not in agreement with the providers plan of care and reports that she left AGAINST MEDICAL ADVICE on 05/23/2023. Patient reports she continued to have left lower extremity swelling, redness, and pain accompanied by subjective fevers, so she returned to our facility today. Patient denies having any drainage or open wounds. She denies having any headache, lightheadedness, dizziness, chest pain, palpitations, shortness of breath, or experiencing any numbness or tingling in her extremities. Patient with chronic bilateral lower extremity lymphedema and does not follow with a PCP or lymphedema clinic. Upon arrival to our facility patient underwent full evaluation. Vital signs upon arrival show blood pressure 138/88, heart rate 82, respiratory rate 18, temp 98.7 F, and SpO2 of 98% on room air. Labs completed and reviewed. CBC showing mild leukocytosis with WBC count of 12.9, normocytic anemia with hemoglobin of 11.1, and thrombocytosis with platelet count of 557. BMP unremarkable. Liver profile showing elevated AST of 43 otherwise normal findings. CRP slightly elevated at 3.3. Patient was started on IV antibiotics with nafcillin and admitted under our services with consultation to infectious disease. Review of systems: Pertinent positives and negatives as discussed in HPI, a complete review of systems was performed and all other systems are negative. Physical exam: Vital signs reviewed and stable. General: Nontoxic, no distress and appears stated age. Derm: Skin warm and dry, normal coloration for ethnicity. Head: Atraumatic, normocephalic and symmetric. Eyes: EOMs intact, no lid lag, and anicteric sclera Mouth: no lip lesions, mucus membranes moist Cardiovascular: regular rate and rhythm with normal S1S2, no murmur, positive posterior tibial pulses bilaterally, and cap refill < 2 seconds. Lungs: Respirations even, regular, and unlabored on room air. Lungs diminished, no rhonchi, no rales, no wheezing, and no accessory muscle usage. Abdominal: Obese abdomen, soft, nontender to palpation, no guarding, no appreciable organomegaly Ext: Bilateral lower extremity lymphedema. Left lower extremity cellulitis with moderate erythema no open lesions/wounds and no drainage. Neuro: Speech clear, face symmetrical and CN II-XII grossly intact with no noted focal neuro deficits Psych: Alert and oriented to person, place, time, and situation. Appropriate and pleasant affect. Assessment and Plan of Care: Left lower extremity cellulitis Leukocytosis, secondary to above Bilateral lower extremity lymphedema -IV antibiotics with cefepime 2 g every 8 hours. -Infectious disease consulted, appreciate recommendations. -Blood culture. -Symptomatic care and pain management. Tylenol for mild pain and/or fever greater than 100.5 F and Toradol 15 mg IVP every 6 hours as needed for moderate pain. -Recommend Mannie wrap's to bilateral legs -DVT prophylaxis with heparin 5000 units SQ every 8 hours -Fall precautions -PT/OT consult Data and imaging reviewed: -As stated above in HPI. CODE STATUS: Full code DVT prophylaxis: Heparin Anticipated discharge date: Clinical course to determine Anticipated discharge place: Clinical course to determine Patient was seen independently by Nurse Practitioner. This document was prepared using [employer] dictation software. Please allow for errors in strike off machine operator while rare they do occur. Ruddy Todd NP rendered care for this patient independently, reviewed the find ings and plan as documented in the note above. I did not physically speak with or examine the patient on this date. Past Medical History Past Medical History: No Reported History Additional Past Medical History / Comment(s): HEAVY MENSTRUAL BLEEDING., EDEMA RIGHT ANKLE (HX OF INJURY WITH SURGERY & HARDWARE IN PLACE.) HX OF INJURY LEFT LEG WITH HARDWARE IN PLACE. History of Any Multi-Drug Resistant Organisms: None Reported Past Surgical History: Orthopedic Surgery, Tonsillectomy, Tubal Ligation Additional Past Surgical History / Comment(s): right ankle surgery with plate & bolts., plates and screws in left leg , D & C., Uterine ablation 12/21/17 Past Anesthesia/Blood Transfusion Reactions: No Reported Reaction Past Psychological History: No Psychological Hx Reported Smoking Status: Never smoker Past Alcohol Use History: Occasional Past Drug Use History: None Reported - Past Family History Father Family Medical History: Coronary Artery Disease (CAD), Myocardial Infarction ([place]) Mother Family Medical History: COPD, Hypertension Medications and Allergies Home Medications Medication Instructions Recorded Confirmed Type Ammonium Lactate Lotion 1 applic TOPICAL BID 30 Days #1 05/29/23 Rx [Lac-Hydrin 12% Lotion] cream Amoxic-Pot Clav 875-125Mg 1 tab PO Q12HR 7 Days #14 tab 05/29/23 Rx [Augmentin 875-125] Famotidine [Pepcid] 20 mg PO BID 30 Days #60 tab 05/29/23 Rx Allergies Allergy/AdvReac Type Severity Reaction Status Date / Time magnesium salicylate Allergy Rash/Hives Verified 05/26/23 09:49 [From Diurex] silicone Allergy Rash/Hives Verified 05/26/23 09:49 vancomycin Allergy Swelling Verified 05/26/23 09:49 cephalexin [From Keflex] AdvReac FEVER Verified 05/26/23 09:49 Physical Exam Vitals: Vital Signs Temp Pulse Resp BP Pulse Ox 05/26/23 08:43 144/87 05/26/23 08:22 98.1 F 78 18 165/107 96 05/26/23 06:00 77 18 135/80 95 05/26/23 04:18 98.7 F 82 18 138/88 98 Intake and Output 05/25/23 05/26/23 05/26/23 22:59 06:59 14:59 Other: Weight 154.221 kg Results CBC & Chem 7: 05/28/23 07:03 05/28/23 07:03 Labs: Abnormal Lab Results - Last 24 Hours (Table) 05/26/23 05/26/23 Range/Units 05:36 05:36 WBC 12.9 H (3.8-10.6) k/uL Hgb 11.1 L (11.4-16.0) gm/dL Plt Count 557 H (150-450) k/uL Neutrophils # 9.8 H (1.3-7.7) k/uL Glucose 101 H (74-99) mg/dL AST 43 H (14-36) U/L C-Reactive Protein 3.3 H (<1.0) mg/dL
[2023-05-26] MEDS: diphenhydrAMINE 50 MG/ML 1 ML VIAL IVP PRN (18:55)
[2023-05-26] MEDS: KETOROLAC 15 MG/ML 1 ML VIAL IVP PRN (18:56)
--- NOTE | 2023-05-27 08:00 | P.CONS ---
History of Present Illness - Reason for Consult Consult date: 05/26/23 Left lower extremity cellulitis Requesting physician: Ruddy Todd - Chief Complaint Increasing swelling redness of the left leg x days - History of Present Illness Patient is a 52-year-old female with a past medical history significant for lymphedema left to the left lower extremity and history of recurrent cellulitis presenting to the ER for evaluation of increasing swelling to the left lower extremity, patient mention she was admitted at the [facility] and apparently treated with the vancomycin causing her to having some burning and itching and subsequent left AGAINST MEDICAL ADVICE on Thursday presented to this facility with increasing and worsening swelling or redness to left lower extremity has been complaining of pain describing it to be sharp moderate to severe intensity without any radiation with associated swelling and redness did not have any open wound or any drainage with the send the patient was evaluated on presentation to the hospital patient was afebrile and no temperature have been recorded subsequently patient was not tachycardic hypotensive or hypoxic patient did have a white count of 12.9 with a left shift creatinine was 0.68 electrolytes were normal liver enzymes are normal, patient mention having a problem with cephalexin in the past however the patient was started on cefepime and has tolerated so far, patient also mention she has taken penicillin without any problem Review of Systems Positive point and negatives has been mentioned in the HPI, complete review of systems was performed and all other systems are negative Past Medical History Past Medical History: No Reported History Additional Past Medical History / Comment(s): HEAVY MENSTRUAL BLEEDING., EDEMA RIGHT ANKLE (HX OF INJURY WITH SURGERY & HARDWARE IN PLACE.) HX OF INJURY LEFT LEG WITH HARDWARE IN PLACE. History of Any Multi-Drug Resistant Organisms: None Reported Past Surgical History: Orthopedic Surgery, Tonsillectomy, Tubal Ligation Additional Past Surgical History / Comment(s): right ankle surgery with plate & bolts., plates and screws in left leg , D & C., Uterine ablation 12/21/17 Past Anesthesia/Blood Transfusion Reactions: No Reported Reaction Past Psychological History: No Psychological Hx Reported Smoking Status: Never smoker Past Alcohol Use History: Occasional Past Drug Use History: None Reported - Past Family History Father Family Medical History: Coronary Artery Disease (CAD), Myocardial Infarction ([place]) Mother Family Medical History: COPD, Hypertension Medications and Allergies Home Medications Medication Instructions Recorded Confirmed Type Ammonium Lactate Lotion 1 applic TOPICAL BID 30 Days #1 03/08/24 Rx [Lac-Hydrin 12% Lotion] cream Amoxic-Pot Clav 875-125Mg 1 tab PO Q12HR 7 Days #14 tab 05/29/23 Rx [Augmentin 875-125] Famotidine [Pepcid] 20 mg PO BID 30 Days #60 tab 05/29/23 Rx Allergies Allergy/AdvReac Type Severity Reaction Status Date / Time magnesium salicylate Allergy Rash/Hives Verified 05/26/23 09:49 [From Diurex] silicone Allergy Rash/Hives Verified 05/26/23 09:49 vancomycin Allergy Swelling Verified 05/26/23 09:49 cephalexin [From Keflex] AdvReac FEVER Verified 05/26/23 09:49 Physical Exam Vitals: Vital Signs Temp Pulse Pulse Resp BP BP Pulse Ox 05/26/23 08:46 97.8 F 89 18 99/73 98 05/26/23 08:43 144/87 05/26/23 08:22 98.1 F 78 18 165/107 96 05/26/23 06:00 77 18 135/80 95 05/26/23 04:18 98.7 F 82 18 138/88 98 Intake and Output 05/25/23 05/26/23 05/26/23 22:59 06:59 14:59 Other: Weight 154.221 kg 154.221 kg GENERAL DESCRIPTION: Middle-aged female lying in bed, no distress. No tachypnea or accessory muscle of respiration use. HEENT: Shows Pallor , no scleral icterus. Oral mucous membrane is dry. No pharyngeal erythema or thrush NECK: Trachea central, no thyromegaly. LUNGS: Unlabored breathing. Clear to auscultation anteriorly. No wheeze or crackle. HEART: S1, S2, regular rate and rhythm. No loud murmur ABDOMEN: Soft, no tenderness , guarding or rigidity, no organomegaly EXTREMITIES: Diffuse swelling to bilateral lower extremity worse on the left leg with associated redness warm and tender to touch SKIN: no masses palpable. NEUROLOGICAL: The patient is awake, alert, oriented x3, mood and affect normal. Results CBC & Chem 7: 05/28/23 07:03 05/28/23 07:03 Labs: Abnormal Lab Results - Last 24 Hours (Table) 03/05/24 03/05/24 Range/Units 05:36 05:36 WBC 12.9 H (3.8-10.6) k/uL Hgb 11.1 L (11.4-16.0) gm/dL Plt Count 557 H (150-450) k/uL Neutrophils # 9.8 H (1.3-7.7) k/uL Glucose 101 H (74-99) mg/dL AST 43 H (14-36) U/L C-Reactive Protein 3.3 H (<1.0) mg/dL Assessment and Plan (1) Allergy to multiple antibiotics Status: Acute Code(s): Z88.1 - ALLERGY STATUS TO OTHER ANTIBIOTIC AGENTS SNOMED Code(s): 238542990 (2) Left leg cellulitis Status: Acute Code(s): L03.116 - CELLULITIS OF LEFT LOWER LIMB SNOMED Code(s): 03077214720074880 (3) Sepsis Status: Acute Code(s): A41.9 - SEPSIS, UNSPECIFIED ORGANISM SNOMED Code(s): 28393471 Plan: 1patient is a 52-year-old female who did have extensive left lower extremity lymphedema now presented to hospital with worsening swelling redness likely component of cellulitis and likely from gram-positive skin dion 2-patient with multiple antibiotic ALLERGIES that would limit the number of antibiotic safe to use 3-patient mention having a reaction with Keflex but has tolerated cefepime clinical without true cephalosporin allergy 4marked area of the redness 5we will continue with cefepime 2 g every 8 hours and see clinical response We will follow on clinical condition and cultures to further adjust medication if needed Thank you for this consultation we will follow the patient along with you Dictation was produced using [employer] dictation software. please excuse any grammatical, word or spelling errors. Time with Patient: Greater than 30
--- NOTE | 2023-05-27 12:54 | P.PN ---
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 She presented to the emergency department with a chief complaint of left lower extremity pain and swelling. She reports this initially began last week and was admitted on to [facility]. She was diagnosed with cellulitis and started on IV antibiotics with vancomycin. However, patient reports she was not in agreement with the providers plan of care and reports that she left AGAINST MEDICAL ADVICE on 05/23/2023. Patient reports she continued to have left lower extremity swelling, redness, and pain accompanied by subjective fevers, so she returned to our facility today. Patient denies having any drainage or open wounds. She denies having any headache, lightheadedness, dizziness, chest pain, palpitations, shortness of breath, or experiencing any numbness or tingling in her extremities. Patient with chronic bilateral lower extremity lymphedema and does not follow with a PCP or lymphedema clinic. Upon arrival to our facility patient underwent full evaluation. Vital signs upon arrival show blood pressure 138/88, heart rate 82, respiratory rate 18, temp 98.7 F, and SpO2 of 98% on room air. Labs completed and reviewed. CBC showing mild leukocytosis with WBC count of 12.9, normocytic anemia with hemoglobin of 11.1, and thrombocytosis with platelet count of 557. BMP unremarkable. Liver profile showing elevated AST of 43 otherwise normal findings. CRP slightly elevated at 3.3. Patient was started on IV antibiotics with nafcillin and admitted under our services with consultation to infectious disease. Physical exam: Patient seen and fully evaluated at bedside this morning. Left lower extremity cellulitis appears to be improving decreasing in redness, however patient's rash from her Darier's disease has worsened. Papules seem to be increasing in redness and not seeping clear fluids. Darier's flare is likely secondary to exacerbation by current bacterial infection with patient's cellulitis. Vital signs reviewed and stable. General: Nontoxic, no distress and appears stated age. Derm: Skin warm and dry, normal coloration for ethnicity.Papule rash covering entire back, neck and bilateral lower extremities seeping clear fluid. Head: Atraumatic, normocephalic and symmetric. Eyes: EOMs intact, no lid lag, and anicteric sclera Mouth: no lip lesions, mucus membranes moist Cardiovascular: regular rate and rhythm with normal S1S2, no murmur, positive posterior tibial pulses bilaterally, and cap refill < 2 seconds. Lungs: Respirations even, regular, and unlabored on room air. Lungs diminished, no rhonchi, no rales, no wheezing, and no accessory muscle usage. Abdominal: Obese abdomen, soft, nontender to palpation, no guarding, no appreciable organomegaly Ext: Bilateral lower extremity lymphedema. Left lower extremity cellulitis with moderate erythema no open lesions/wounds and no drainage. Neuro: Speech clear, face symmetrical and CN II-XII grossly intact with no noted focal neuro deficits Psych: Alert and oriented to person, place, time, and situation. Appropriate and pleasant affect. Assessment and Plan of Care: Left lower extremity cellulitis Leukocytosis, secondary to above Bilateral lower extremity lymphedema -IV antibiotics with unasyn 3g IVPB q6 hours -Infectious disease consulted, appreciate recommendations. -Blood culture. -Symptomatic care and pain management. Tylenol for mild pain and/or fever greater than 100.5 F and Toradol 15 mg IVP every 6 hours as needed for moderate pain. -Recommend Mannie wrap's to bilateral legs -DVT prophylaxis with heparin 5000 units SQ every 8 hours -Fall precautions -PT/OT consult Darrier's disease with flare -Flare of symptoms/rash with leaking papules was likely exacerbated by current bacterial infection due to cellulitis. -Order placed for decadron 10 mg IVP x one dose and will place on prednisone 40 mg daily for an additional 5 days to prevent further skin breakdown and additional risk of infection. -Discussed with ID and recommended switching to Unasyn 3g q6 hours Data and imaging reviewed: -Vital signs reviewed. Blood pressure 135/83, heart rate 90, respiratory rate 19, temp 97.8 F, and SpO2 of 98% on room air. CODE STATUS: Full code DVT prophylaxis: Heparin Anticipated discharge date: Clinical course to determine Anticipated discharge place: Clinical course to determine Patient was seen independently by Nurse Practitioner. This document was prepared using [employer] dictation software. Please allow for errors in neurosurgery physician while rare they do occur. Ruddy Todd NP rendered care for this patient independently, reviewed the findings and plan as documented in the note above. I did not physically speak with or examine the patient on this date. -recommend follow-up with derm on discharge to eval for oral retenoids. Objective - Vital Signs Vital signs: Vital Signs Temp 97.8 F 05/27/23 07:00 Pulse 90 05/27/23 07:00 Resp 19 05/27/23 07:00 BP 135/83 05/27/23 07:00 Pulse Ox 98 05/27/23 07:00 FiO2 Intake & Output 05/26/23 05/27/23 05/27/23 18:59 06:59 18:59 Intake Total 540 980 Balance 540 980 Weight 154.221 kg Intake: Intake, IV Titration 100 Amount Cefepime 2 gm In Sodium 100 Chloride 0.9% 100 ml @ 25 mls/hr IVPB Q8H [facility] Rx#: [id number] Oral 540 880 Other: # Voids 2 - Labs CBC & Chem 7: 05/26/23 05:36 05/26/23 05:36
[2023-05-27] MEDS: DEXAMETHASONE SOD PHOSPHATE 10 MG/ML 1 ML VIAL IVP STA (12:55)
[2023-05-27] MEDS: AMPICILLIN-SULBACTAM 3 GM in SODIUM CHLORIDE 0.9% 100 ML IVPB SCH (12:55)
[2023-05-27] MEDS: AMMONIUM LACTATE 12% LOTION 225 GM BTL TOPICAL SCH (21:56)
[2023-05-28 07:25] LABS: HCT 34.2 % (34.0-46.0); HGB 10.6 gm/dL (11.4-16.0); Hypochromasia Slight; MCH 28.3 pg (25.0-35.0); MCV 91.2 fL (80.0-100.0); Mean Platelet Volume 8.9; Platelet Count 613 k/uL (150-450); RBC 3.75 m/uL (3.80-5.40); RDW 14.1 % (11.5-15.5); WBC 8.2 k/uL (3.8-10.6)
[2023-05-28 07:51] LABS: ALT 24 U/L (4-34); AST 27 U/L (14-36); African American GFR (CKD) >90 (>60 ml/min/1.73 sqM); Albumin 3.2 g/dL (3.5-5.0); Alkaline Phosphatase 86 U/L (38-126); Anion Gap 6 mmol/L; Blood Urea Nitrogen 14 mg/dL (7-17); Calcium 8.6 mg/dL (8.4-10.2); Carbon Dioxide 24 mmol/L (22-30); Chloride 110 mmol/L (98-107); Glucose 116 mg/dL (74-99); Magnesium 2.5 mg/dL (1.6-2.3); Non-African American GFR(CKD) >90 (>60 ml/min/1.73 sqM); Potassium 4.8 mmol/L (3.5-5.1); Sodium 140 mmol/L (137-145); Total Bilirubin 0.4 mg/dL (0.2-1.3); Total Protein 7.1 g/dL (6.3-8.2)
[2023-05-28] MEDS: predniSONE 20 MG TAB PO SCH (09:34)
[2023-05-28 10:10] LABS: C Reactive Protein 2.4 mg/dL (<1.0)
--- NOTE | 2023-05-28 12:05 | P.PN ---
Subjective Progress Note Date: 05/27/23 Principal diagnosis: Left lower extremity cellulitis multiple antibiotic allergies Patient is a 52-year-old female with a past medical history significant for lymphedema left to the left lower extremity and history of recurrent cellulitis presenting to the ER for evaluation of increasing swelling to the left lower extremity, patient did have a multiple antibiotic allergies started on cefepime infectious disease consulted for further management. On today's evaluation that is 05/27/2023,the patient remains to be afebrile, patient is on room air not requiring supplemental oxygen and denies any shortness of breath no chest pain or cough.Patient denies having any nausea or vomiting, no abdominal pain and no diarrhea has been reported, swelling and redness to the left foreskin is slightly decreased. No new labs has been repeated today blood cultures pending Objective - Vital Signs Vital signs: Vital Signs Temp 97.8 F 05/27/23 07:00 Pulse 90 05/27/23 07:00 Resp 19 05/27/23 07:00 BP 135/83 05/27/23 07:00 Pulse Ox 98 05/27/23 07:00 FiO2 Intake & Output 05/26/23 05/27/23 05/27/23 18:59 06:59 18:59 Intake Total 540 980 520 Balance 540 980 520 Weight 154.221 kg Intake: Intake, IV Titration 100 Amount Cefepime 2 gm In Sodium 100 Chloride 0.9% 100 ml @ 25 mls/hr IVPB Q8H [facility] Rx#: [id number] Oral 540 880 520 Other: # Voids 2 - Exam GENERAL DESCRIPTION: Middle-aged female lying in bed in no distress RESPIRATORY SYSTEM: Unlabored breathing , decreased breath sounds at bases HEART: S1 S2 regular rate and rhythm , ABDOMEN: Soft , no tenderness EXTREMITIES: Left lower extremity swelling redness slightly decreased - Labs CBC & Chem 7: 05/28/23 07:03 05/28/23 07:03 Assessment and Plan (1) Allergy to multiple antibiotics Current Visit: Yes Status: Acute Code(s): Z88.1 - ALLERGY STATUS TO OTHER A NTIBIOTIC AGENTS SNOMED Code(s): 490877857 (2) Left leg cellulitis Current Visit: No Status: Acute Code(s): L03.116 - CELLULITIS OF LEFT LOWER LIMB SNOMED Code(s): 30049337943931149 Plan: 1patient is a 52-year-old female who did have extensive left lower extremity lymphedema now presented to hospital with worsening swelling redness likely component of cellulitis and likely from gram-positive skin dion 2-patient with multiple antibiotic ALLERGIES that would limit the number of antibiotic safe to use 3-patient antibiotic will be switched over to Unasyn there will simplify her outpatient antibiotic therapy discussed with the OPERATING ROOM SURGICAL TECHNICIAN for admitting team patient seem to have flareup of her skin condition systemic steroids should be okay to use in the current situation discussed with the OPERATING ROOM SURGICAL TECHNICIAN for admitting team Dictation was produced using [employer] dictation software. please excuse any grammatical, word or spelling errors. Time with Patient: Less than 30
--- NOTE | 2023-05-28 16:47 | P.PN ---
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 She presented to the emergency department with a chief complaint of left lower extremity pain and swelling. She reports this initially began last week and was admitted on to [facility]. She was diagnosed with cellulitis and started on IV antibiotics with vancomycin. However, patient reports she was not in agreement with the providers plan of care and reports that she left AGAINST MEDICAL ADVICE on 05/23/2023. Patient reports she continued to have left lower extremity swelling, redness, and pain accompanied by subjective fevers, so she returned to our facility today. Patient denies having any drainage or open wounds. She denies having any headache, lightheadedness, dizziness, chest pain, palpitations, shortness of breath, or experiencing any numbness or tingling in her extremities. Patient with chronic bilateral lower extremity lymphedema and does not follow with a PCP or lymphedema clinic. Upon arrival to our facility patient underwent full evaluation. Vital signs upon arrival show blood pressure 138/88, heart rate 82, respiratory rate 18, temp 98.7 F, and SpO2 of 98% on room air. Labs completed and reviewed. CBC showing mild leukocytosis with WBC count of 12.9, normocytic anemia with hemoglobin of 11.1, and thrombocytosis with platelet count of 557. BMP unremarkable. Liver profile showing elevated AST of 43 otherwise normal findings. CRP slightly elevated at 3.3. Patient was started on IV antibiotics with nafcillin and admitted under our services with consultation to infectious disease. Day 2 of hospitalization patient experienced a Darier's flare of her papule rash, this was likely exacerbated by current bacterial infection she is being treated for with her cellulitis. Patient was started on steroids, Benadryl, and Lac-Hydrin 12% topical cream. Discussed with patient it is important to establish care with a PCP, lymphedema specialist, and follow-up with resident hall director outpatient after discharge. Physical exam: Patient seen and fully evaluated at bedside this morning. Left lower extremity cellulitis continues to appear to be improving, significantly decreasing in redness. Patient's Darier's flare also seems to be significantly improved since initiation of steroids. Patient currently denies having any needs, questions, or concerns at this time. Vital signs reviewed and stable. General: Nontoxic, no distress and appears stated age. Derm: Skin warm and dry, normal coloration for ethnicity.Papule rash covering entire back, neck and bilateral lower extremities seeping clear fluid, improving. Head: Atraumatic, normocephalic and symmetric. Eyes: EOMs intact, no lid lag, and anicteric sclera Mouth: no lip lesions, mucus membranes moist Cardiovascular: regular rate and rhythm with normal S1S2, no murmur, positive posterior tibial pulses bilaterally, and cap refill < 2 seconds. Lungs: Respirations even, regular, and unlabored on room air. Lungs diminished, no rhonchi, no rales, no wheezing, and no accessory muscle usage. Abdominal: Obese abdomen, soft, nontender to palpation, no guarding, no appreciable organomegaly Ext: Bilateral lower extremity lymphedema. Left lower extremity cellulitis with moderate erythema no open lesions/wounds and no drainage. Neuro: Speech clear, face symmetrical and CN II-XII grossly intact with no noted focal neuro deficits Psych: Alert and oriented to person, place, time, and situation. Appropriate and pleasant affect. Assessment and Plan of Care: Left lower extremity cellulitis Leukocytosis, secondary to above Thrombocytosis, likely reactive secondary to infection as above Bilateral lower extremity lymphedema -IV antibiotics with unasyn 3g IVPB q6 hours -Infectious disease following, discussed plan of care with Dr. Lundberg. He is recommending an additional 24 hours of IV antibiotics and clearing patient for discharge home on Augmentin tomorrow morning. -Blood culture showing no growth to date. -Symptomatic care and pain management. Tylenol for mild pain and/or fever greater than 100.5 F and Toradol 15 mg IVP every 6 hours as needed for moderate pain. -Continue Mannie wrap's to bilateral legs -DVT prophylaxis with heparin 5000 units SQ every 8 hours -Fall precautions -PT/OT following Darrier's disease with flare -Flare of symptoms/rash with leaking papules was likely exacerbated by current bacterial infection due to cellulitis and is showing improvement since initiation of steroids. -Continue prednisone 40 mg daily for 5 days to prevent further skin breakdown and additional risk of infection. -Patient was started on steroids with prednisone 40 mg daily, Benadryl 25 mg every 6 hours as needed for itching, and Lac-Hydrin 12% topical cream. -Recommend follow-up with resident hall director on discharge to further evaluation and possible initiation of oral retenoids. Data and imaging reviewed: -Vital signs reviewed. Blood pressure 125/73, heart rate 73, respiratory rate 16, temp 97.7 F, and SpO2 of 97% on room air. -Morning labs reviewed. Blood cultures showing no growth to date. CBC showing resolution of leukocytosis with WBC count 8.2, stable normocytic anemia with hemoglobin of 10.6, and continued thrombocytosis with platelet count of 613. BMP showing no significant abnormalities. Blood glucose 116. Liver profile unremarkable. CRP improving initially 3.3 this morning 2.4. CODE STATUS: Full code DVT prophylaxis: Heparin Anticipated discharge date: Tomorrow morning, patient to receive an additional 24 hours of IV antibiotics and plans for discharge home tomorrow morning. Anticipated discharge place: Home Patient was seen independently by Nurse Practitioner. This document was prepared using [employer] dictation software. Please allow for errors in class c driver while rare they do occur. Ruddy Todd NP rendered care for this patient independently, reviewed the findings and plan as documented in the note above. I did not physically speak with or examine the patient on this date. Objective - Vital Signs Vital signs: Vital Signs Temp 98.0 F 05/28/23 02:00 Pulse 68 05/28/23 02:00 Resp 18 05/27/23 15:00 BP 158/90 05/28/23 02:00 Pulse Ox 98 05/28/23 02:00 FiO2 Intake & Output 05/27/23 05/28/23 05/28/23 18:59 06:59 18:59 Intake Total 1900 60 Balance 1900 60 Intake: Intake, IV Titration 60 Amount Sodium Chloride 0.9% 1, 60 000 ml @ 20 mls/hr IV . Q24H [facility] Rx#:[id number] Oral 1900 Other: Voiding Method Toilet # Voids 1 2 - Labs CBC & Chem 7: 05/28/23 07:03 05/28/23 07:03 Labs: Abnormal Lab Results - Last 24 Hours (Table) 05/28/23 Range/Units 07:03 RBC 3.75 L (3.80-5.40) m/uL Hgb 10.6 L (11.4-16.0) gm/dL Plt Count 613 H (150-450) k/uL Microbiology - Last 24 Hours (Table) 05/26/23 15:45 Blood Culture - Preliminary Blood
[2023-05-28] MEDS: diphenhydrAMINE 25 MG CAP PO PRN (23:49)
[2023-05-29 08:20] VITALS: BP 128/73; PULSE 63; RESP 17; TEMP 98
--- NOTE | 2023-05-29 11:05 | P.PN ---
Subjective Progress Note Date: 05/28/23 Principal diagnosis: Left lower extremity cellulitis multiple antibiotic allergies Patient is a 52-year-old female with a past medical history significant for lymphedema left to the left lower extremity and history of recurrent cellulitis presenting to the ER for evaluation of increasing swelling to the left lower extremity, patient did have a multiple antibiotic allergies started on cefepime infectious disease consulted for further management. On today's evaluation that is 05/28/2023, the patient continues to be afebrile, the patient is on room air and breathing comfortably, the Pt denies having any chest pain or cough, the patient denies having any abdominal pain no vomiting or any diarrhea has been reported by the nursing staff, overall pain and discomfort as well as redness to the left leg has decreased in intensity. The patient white count is 8.2, creatinine of 0.64 blood culture so far negative Objective - Vital Signs Vital signs: Vital Signs Temp 97.7 F 05/28/23 07:00 Pulse 73 05/28/23 07:00 Resp 18 05/27/23 15:00 BP 125/73 05/28/23 07:00 Pulse Ox 98 05/28/23 02:00 FiO2 Intake & Output 05/27/23 05/28/23 05/28/23 18:59 06:59 18:59 Intake Total 1900 60 Balance 1900 60 Intake: Intake, IV Titration 60 Amount Sodium Chloride 0.9% 1, 60 000 ml @ 20 mls/hr IV . Q24H [facility] Rx#:[id number] Oral 1900 Other: Voiding Method Toilet Toilet # Voids 1 2 - Exam GENERAL DESCRIPTION: Middle-aged female lying in bed in no distress RESPIRATORY SYSTEM: Unlabored breathing , decreased breath sounds at bases HEART: S1 S2 regular rate and rhythm , ABDOMEN: Soft , no tenderness EXTREMITIES: Left lower extremity swelling redness slightly decreased - Labs CBC & Chem 7: 05/28/23 07:03 05/28/23 07:03 Labs: Abnormal Lab Results - Last 24 Hours (Table) 05/28/23 05/28/23 Range/Units 07:03 07:03 RBC 3.75 L (3.80-5.40) m/uL Hgb 10.6 L (11.4-16.0) gm/dL Plt Count 613 H (150-450) k/uL Chloride 110 H (98-107) mmol/L Glucose 116 H (74-99) mg/dL Magnesium 2.5 H (1.6-2.3) mg/dL C-Reactive Protein 2.4 H (<1.0) mg/dL Albumin 3.2 L (3.5-5.0) g/dL Microbiology - Last 24 Hours (Table) 05/26/23 15:45 Blood Culture - Preliminary Blood Assessment and Plan (1) Allergy to multiple antibiotics Current Visit: Yes Status: Acute Code(s): Z88.1 - ALLERGY STATUS TO OTHER ANTIBIOTIC AGENTS SNOMED Code(s): 875813476 (2) Left leg cellulitis Current Visit: No Status: Acute Code(s): L03.116 - CELLULITIS OF LEFT LOWER LIMB SNOMED Code(s): 63960794372291864 Plan: 1patient is a 52-year-old female who did have extensive left lower extremity lymphedema now presented to hospital with worsening swelling redness likely component of cellulitis and likely from gram-positive skin dion 2-patient with multiple antibiotic ALLERGIES that would limit the number of antibiotic safe to use 3-patient to continue with Unasyn along with Mannie wrap for compression and steroids per admitting team will be able to finish therapy with oral Augmentin x 7 to 10 days on discharge Dictation was produced using [employer] dictation software. please excuse any grammatical, word or spelling errors.
--- NOTE | 2023-05-29 14:58 | P.PN ---
Subjective Progress Note Date: 05/29/23 Principal diagnosis: Left lower extremity cellulitis multiple antibiotic allergies Patient is a 52-year-old female with a past medical history significant for lymphedema left to the left lower extremity and history of recurrent cellulitis presenting to the ER for evaluation of increasing swelling to the left lower extremity, patient did have a multiple antibiotic allergies started on cefepime infectious disease consulted for further management. On today's evaluation that is 05/29/2023, Patient is afebrile patient is currently on room air and denies having any shortness of breath, the patient denies any chest pain or cough, the patient denies any nausea vomiting did not have any abdominal pain and no diarrhea, pain and redness to the left leg has decreased in intensity patient did have a normal white count yesterday no CBC was done today blood culture so far negative Objective - Vital Signs Vital signs: Vital Signs Temp 98.0 F 05/29/23 07:00 Pulse 63 05/29/23 07:20 Resp 17 05/29/23 07:20 BP 128/73 05/29/23 07:00 Pulse Ox 97 05/29/23 00:51 FiO2 Intake & Output 05/28/23 05/29/23 05/29/23 18:59 06:59 18:59 Intake Total 1328 1320 Balance 1328 1320 Intake: Intake, IV Titration 160 Amount Sodium Chloride 0.9% 1, 160 000 ml @ 20 mls/hr IV . Q24H [facility] Rx#:[id number] Oral 1168 1320 Other: Voiding Method Toilet Toilet Toilet # Voids 3 2 - Exam GENERAL DESCRIPTION: Middle-aged female lying in bed in no distress RESPIRATORY SYSTEM: Unlabored breathing , decreased breath sounds at bases HEART: S1 S2 regular rate and rhythm , ABDOMEN: Soft , no tenderness EXTREMITIES: Left lower extremity swelling redness slightly decreased - Labs CBC & Chem 7: 05/28/23 07:03 05/28/23 07:03 Labs: Microbiology - Last 24 Hours (Table) 05/26/23 15:45 Blood Culture - Preliminary Blood Assessment and Plan (1) Allergy to multiple antibiotics Status: Acute Code(s): Z88.1 - ALLERGY STATUS TO OTHER ANTIBIOTIC AGENTS SNOMED Code(s): 278773656 (2) Left leg cellulitis Status: Acute Code(s): L03.116 - CELLULITIS OF LEFT LOWER LIMB SNOMED Code(s): 97889541810506809 Plan: 1patient is a 52-year-old female who did have extensive left lower extremity lymphedema now presented to hospital with worsening swelling redness likely component of cellulitis and likely from gram-positive skin dion 2-patient with multiple antibiotic ALLERGIES that would limit the number of antibiotic safe to use 3-patient did have improvement to the left lower extremity cellulitis will finish therapy with Augmentin instructed to follow-up in the lymphedema clinic and continue with the compression dressing to keep the swelling down and prevent recurrent cellulitis Dictation was produced using [employer] dictation software. please excuse any grammatical, word or spelling errors. Time with Patient: Less than 30
--- NOTE | 2023-05-29 15:40 | P.DS ---
Providers Date of admission: 05/26/23 08:02 Expected date of discharge: 05/29/23 Attending physician: Brea Will DO Consults: 05/26/23 08:56 Consult Physician Routine Consulting Provider: Josie Lundberg Consult Reason/Comments: failed outpt tx of cellulitis LLE Do you want consulting provider notified?: Yes Primary care physician: Stated None Hospital Course: Discharge Diagnosis: Left lower extremity cellulitis Leukocytosis, secondary to above Thrombocytosis, likely reactive secondary to infection as above Bilateral lower extremity lymphedema Darrier's disease with flare Hospital Course: Patient is a very pleasant 52-year-old female with 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 She presented to the emergency department with a chief complaint of left lower extremity pain and swelling. She reports this initially began last week and was admitted on to [facility]. She was diagnosed with cellulitis and started on IV antibiotics with vancomycin. However, patient reports she was not in agreement with the providers plan of care and reports that she left AGAINST MEDICAL ADVICE on 05/23/2023. Patient reports she continued to have left lower extremity swelling, redness, and pain accompanied by subjective fevers, so she returned to our facility today. Patient denies having any drainage or open wounds. She denies having any headache, lightheadedness, dizziness, chest pain, palpitations, shortness of breath, or experiencing any numbness or tingling in her extremities. Patient with chronic bilateral lower extremity lymphedema and does not follow with a PCP or lymphedema clinic. Upon arrival to our facility patient underwent full evaluation. Vital signs upon arrival show blood pressure 138/88, heart rate 82, respiratory rate 18, temp 98.7 F, and SpO2 of 98% on room air. Labs completed and reviewed. CBC showing mild leukocytosis with WBC count of 12.9, normocytic anemia with hemoglobin of 11.1, and thrombocytosis with platelet count of 557. BMP unremarkable. Liver profile showing elevated AST of 43 otherwise normal findings. CRP slightly elevated at 3.3. Patient was started on IV antibiotics with nafcillin and admitted under our services with consultation to infectious disease. Day 2 of hospitalization patient experienced a Darier's flare of her papule rash, this was likely exacerbated by current bacterial infection she is being treated for with her cellulitis. Patient was started on steroids, Benadryl, and Lac-Hydrin 12% topical cream. Discussed with patient it is important to establish care with a PCP, lymphedema specialist, and follow-up with decontaminator outpatient after discharge. Patient cleared from infectious disease recommending discharge home on Augmentin 875/125 mg every 12 hours for an additional 7 days. No need for further steroids as patient has had significant improvement of Darier's flare. Recommend continuation of Lac-Hydrin 12% topical cream twice daily. Patient to follow-up outpatient with PCP, decontaminator, and infectious disease specialist as discussed. Patient is medically stable for discharge at this time. Physical exam: Vital signs reviewed and stable. General: Nontoxic, no distress and appears stated age. Derm: Skin warm and dry, normal coloration for ethnicity.Papule rash covering entire back, neck and bilateral lower extremities seeping clear fluid, improving. Head: Atraumatic, normocephalic and symmetric. Eyes: EOMs intact, no lid lag, and anicteric sclera Mouth: no lip lesions, mucus membranes moist Cardiovascular: regular rate and rhythm with normal S1S2, no murmur, positive posterior tibial pulses bilaterally, and cap refill < 2 seconds. Lungs: Respirations even, regular, and unlabored on room air. Lungs diminished, no rhonchi, no rales, no wheezing, and no accessory muscle usage. Abdominal: Obese abdomen, soft, nontender to palpation, no guarding, no appreciable organomegaly Ext: Bilateral lower extremity lymphedema. Left lower extremity cellulitis with minimal erythema no open lesions/wounds and no drainage. Showing significant improvement. Neuro: Speech clear, face symmetrical and CN II-XII grossly intact with no noted focal neuro deficits Psych: Alert and oriented to person, place, time, and situation. Appropriate and pleasant affect. A total of 34 minutes of time were spent preparing this complex discharge summary. Pt was discharged on 05/29/2023 at 11:35 AM. Patient was seen independently by Nurse Practitioner. This document was prepared using [employer] dictation software. Please allow for errors in generator technician while rare they do occur. Ruddy Todd NP rendered care for this patient independently, reviewed the findings and plan as documented in the note above. I did not physically speak with or examine the patient on this date. Patient Condition at Discharge: Stable Plan - Discharge Summary Discharge Rx Participant: Yes New Discharge Prescriptions: New Amoxic-Pot Clav 875-125Mg [Augmentin 875-125] 1 tab PO Q12HR 7 Days #14 tab Ammonium Lactate Lotion [Lac-Hydrin 12% Lotion] 1 applic TOPICAL BID 30 Days #1 cream Famotidine [Pepcid] 20 mg PO BID 30 Days #60 tab Discharge Medication List Ammonium Lactate Lotion [Lac-Hydrin 12% Lotion] 1 applic TOPICAL BID 30 Days #1 cream 05/29/23 [Rx] Amoxic-Pot Clav 875-125Mg [Augmentin 875-125] 1 tab PO Q12HR 7 Days #14 tab 05/29/23 [Rx] Famotidine [Pepcid] 20 mg PO BID 30 Days #60 tab 05/29/23 [Rx] Follow up Appointment(s)/Referral(s): Bre Peacock MD [STAFF PHYSICIAN] - 06/22/23 11:15 am (Please bring you insurance card and photo ID with you to your appointment.) Sailaja Farrell MD [REFERRING] - 1-2 Days (Please call and schedule appointment prior to discharge to set up and establish care with PCP. Office CLOSED on Thursday. Please call office Thursday to schedule your appointment.) Josie Lundberg MD [STAFF PHYSICIAN] - 1 Week (Office closed Fridays. Please call office Thursday for your appointment. Thank you.) Patient Instructions/Handouts: Cellulitis (GEN) Activity/Diet/Wound Care/Special Instructions: Activity: As tolerated. Take breaks as needed. Diet: Heart healthy and carb consistent diet. Avoid salts, or foods with hidden salts such as canned or boxed foods and frozen dinners. Extra salt makes your heart work harder and traps the fluid in your body for longer. Special Instructions: Take all of your medications as directed and remember to keep all of your doctor's appointments and follow-up as needed. As we discussed it is highly recommended you establish care with a PCP, recommend Dr. Farrell along with follow-up with decontaminator for half-way management of Darirer's. Thank you for allowing us to participate in your care, it was truly a pleasure having you for our patient!!! Discharge Disposition: HOME SELF-CARE
--- NOTE | 2023-06-01 04:48 | CDI ---
Documentation Clarification Form Date: 06/01/2023 04:36:28 AM From: Niki Jauregui Admit Date: 05/26/2023 08:01:00 AM Patient Name: Ramandeep Mitchell Visit Number: [id number] Discharge Date: 05/29/2023 01:53:00 PM ATTENTION: The Clinical Documentation Specialists (CDI) and [facility] Coding Staff appreciate your assistance in clarifying documentation. Please respond to the clarification below the line at the bottom and electronically sign. The CDI & [facility] Coding staff will review the response and follow-up if needed. Please note: Queries are made part of the Legal Health Record. If you have any questions, please contact the author of this message via ITS. Dr. Brea Will Per ID consult patient has sepsis. Sepsis diagnosis not carried through chart. Based on this information and the findings below, did patient have Sepsis or was it ruled out. History/Risk Factors: left leg cellulitis Clinical Indicators: WBC 12.9 Lactic acid: not done Blood cultures: no growth Vitals signs: 98.7 F, 82 bpm - 114 bpm, 18, 138/88. 98% RA Treatment: IV antibiotics ID Consult: Sepsis Antibiotics: Cefepime (patient with multiple drug allergies) Is there an additional diagnosis that is clinically appropriate for this patient? [ ] Sepsis, present on admission [ ] Sepsis, developed during stay, not present on admission [ X ] Sepsis ruled out [ ] Septic Shock [ ] SIRS, without underlying infectious process [ ] Other, please specify [ ] Unable to determine SIRS Criteria: 2 or more of the following may indicate SIRS Temperature < 96.8F (36C) or > 101.0F (38.3C) Heart Rate > 90 bpm Respiratory Rate > 20 breaths/min or PaCO2 < 32 mmHg White Blood Cell Count > 12,000 or < 4,000 cells/mm3 or > 10% bands MTDD
== END 2023-05-29 13:53 | disposition home or self-care (01) ==
LOC: EC 04:17 → OBSVTOIN 08:01 → INTOOBSV 08:01 → 6NMEDSUR 08:01 → OBSVTOIN 08:02 → INTOOBSV 08:02 → 1SOBS 08:33 → 4SSUR 05-28 16:40
PROVIDERS: ADMIT Internal Medicine; ATTEND Internal Medicine
DX: L03.116 Cellulitis of left lower limb (principal); I89.0 Lymphedema, not elsewhere classified; E66.01 Morbid (severe) obesity due to excess calories; Z68.44 Body mass index [BMI] 60.0-69.9, adult; D75.839 Thrombocytosis, unspecified; D64.9 Anemia, unspecified; R74.01 Elevation of levels of liver transaminase levels; Q82.8 Other specified congenital malformations of skin; Z79.899 Other long term (current) drug therapy; Z88.1 Allergy status to other antibiotic agents; Z88.8 Allergy status to other drugs, medicaments and biological substances; Z91.048 Other nonmedicinal substance allergy status
CPT/HCPCS: 96366 ×5; 96372 ×5; 96367 ×2; 96375 ×3; 96376 ×2; 96365; 99284; 36415; 80053 ×2; 83735; 85025; 85027; 86140 ×2; 87040; G0378 ×6; J2270; J1200 ×3; J1644 ×4; J1100; J0692 ×2; J0295 ×3; J1885 ×3; J7512 ×2; 96368